=== PATIENT | female | born 1985 | race American Indian/Alaskan Native ===

== ENCOUNTER 2017-03-18 12:09 | Emergency (ER) | payer MEDICARE ==
[2017-03-18 13:42] LABS: Basophils % (Auto) 0.3 % (0.0-1.8); Eosinophils % (Auto) 0.8 % (0.0-4.3); Hematocrit 41.3 % (30.3-42.9); Hemoglobin 13.2 gm/dl (10.1-14.3); Mean Corpuscular HGB Conc 32 % (30-34); Mean Corpuscular Hemoglobin 27 pg (28-32); Mean Corpuscular Volume 85 fl (79-97); Platelet Count 350 K/mm3 (140-440); Red Blood Count 4.89 M/mm3 (3.65-5.03); Red Cell Distribution Width 14.2 % (13.2-15.2); White Blood Count 13.3 K/mm3 (4.5-11.0)
[2017-03-18 14:12] LABS: Alanine Aminotransferase 23 units/L (7-56); Albumin 4.1 g/dL (3.9-5); Albumin/Globulin Ratio 1.1 %; Alkaline Phosphatase 58 units/L (35-129); Anion Gap 20 mmol/L; Blood Urea Nitrogen 6 mg/dL (7-17); Calcium 9.5 mg/dL (8.4-10.2); Carbon Dioxide 25 mmol/L (22-30); Chloride 98.8 mmol/L (98-107); Glucose 122 mg/dL (65-100); Lipase 11 units/L (13-60); Potassium 4.1 mmol/L (3.6-5.0); Sodium 140 mmol/L (137-145)
[2017-03-18 14:40] LABS: Bacteria,Urine 1+ /HPF (Negative); Bilirubin,Urine NEG (Negative); Blood,Urine NEG (Negative); Ketones,Urine NEG (Negative); Leukocyte Esterase,Urine NEG (Negative); Mucus,Urine 2+ /HPF; Nitrite,Urine NEG (Negative)
[2017-03-18] MEDS ORDERED: MORPHINE IV ONE (17:19)
[2017-03-18] MEDS ORDERED: TYLENOL PO ONE (17:19)
--- NOTE | 2017-03-18 17:20 | Emergency Department Report ---
ED Abdominal Pain HPI - General Chief Complaint: Abdominal Pain Stated Complaint: LOWER ADB AND SIDE PAIN Time Seen by Provider: 03/18/17 17:06 Source: patient, RN notes reviewed, old records reviewed Mode of arrival: Ambulatory Limitations: No Limitations - History of Present Illness Initial Comments: This is a 31-year-old female. She is previously unknown to me. Past medical history includes nonischemic cardiomyopathy, diverticulitis. 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 The patient presents to the ER complaining of left-sided abdominal pain. The abdominal pain is sharp. It increases with palpation. It decreases with rest. No nausea or vomiting. No fevers or chills. No chest pain or shortness of breath. No irritative or obstructive urinary symptoms. No pelvic pain. No pelvic discharge. Thinks this is similar to prior episodes of diverticulitis, only more intense. No history of colonoscopy. MD Complaint: abdominal pain -: Gradual Location: LLQ Quality: aching Consistency: constant Improves With: rest Worsens With: movement Associated Symptoms: anorexia. denies: nausea, vomiting, diarrhea, fever, chills, constipation, dysuria, hematemesis, hematochezia, melena, hematuria, syncope Treatments Prior to Arrival: other (goody powder) - Related Data Previous Rx's Medication Instructions Recorded Last Taken Type Aspirin [Aspirin BABY CHEW TAB] 81 mg PO QDAY #30 tab.chew 03/27/16 Unknown Rx Carvedilol [Coreg] 12.5 mg PO BID #60 tablet 03/27/16 Unknown Rx Furosemide [Lasix TAB] 40 mg PO BID #60 tablet 03/27/16 Unknown Rx Lisinopril [Zestril TAB] 10 mg PO BID #60 tablet 03/27/16 Unknown Rx Potassium Chloride [K-Dur] 10 meq PO QDAY #30 tablet 03/27/16 Unknown Rx Spironolactone [Aldactone] 25 mg PO QDAY #30 tablet 03/27/16 Unknown Rx guaiFENesin/DEXTROMETHORPHAN 5 ml PO Q6HR PRN #120 syrup 03/27/16 Unknown Rx [Tussin Dm Cough Syrup] Acetaminophen [Tylenol Arthritis] 650 mg PO Q6HR PRN #30 tablet.er 03/18/17 Unknown Rx Ciprofloxacin HCl [Ciprofloxacin 500 mg PO Q12HR #14 tab 03/18/17 Unknown Rx TAB] Metoclopramide [Reglan] 10 mg PO QID PRN #30 tablet 03/18/17 Unknown Rx metroNIDAZOLE [Flagyl] 500 mg PO Q8HR #21 tablet 03/18/17 Unknown Rx oxyCODONE [Roxicodone] 5 mg PO Q6HR PRN #15 tablet 03/18/17 Unknown Rx Allergies Allergy/AdvReac Type Severity Reaction Status Date / Time pineapple Allergy Swelling Verified 07/15/15 12:13 SEAFOOD Allergy Swelling Uncoded 10/19/13 13:51 ED Review of Systems ROS: Stated complaint: LOWER ADB AND SIDE PAIN Other details as noted in HPI Constitutional: denies: fever, malaise Eyes: denies: vision change ENT: denies: epistaxis Respiratory: denies: cough Cardiovascular: denies: chest pain Gastrointestinal: abdominal pain Genitourinary: denies: urgency, dysuria Musculoskeletal: denies: back pain ED Past Medical Hx - Past Medical History Previous Medical History?: Yes Hx Hypertension: Yes Hx Heart Attack/AMI: Yes (09/2014) Hx Congestive Heart Failure: Yes Hx Diabetes: Yes Hx Kidney Stones: Yes Hx Asthma: Yes Hx COPD: No Additional medical history: Morbid obesity. Defibrillator - Surgical History Past Surgical History?: Yes Hx Internal Defibrillator: Yes - Social History Smoking Status: Never Smoker Substance Use Type: None - Medications Home Medications: Home Medications Medication Instructions Recorded Confirmed Last Taken Type Aspirin [Aspirin BABY CHEW TAB] 81 mg PO QDAY #30 tab.chew 03/27/16 Unknown Rx Carvedilol [Coreg] 12.5 mg PO BID #60 tablet 03/27/16 Unknown Rx Furosemide [Lasix TAB] 40 mg PO BID #60 tablet 03/27/16 Unknown Rx Lisinopril [Zestril TAB] 10 mg PO BID #60 tablet 03/27/16 Unknown Rx Potassium Chloride [K-Dur] 10 meq PO QDAY #30 tablet 03/27/16 Unknown Rx Spironolactone [Aldactone] 25 mg PO QDAY #30 tablet 03/27/16 Unknown Rx guaiFENesin/DEXTROMETHORPHAN 5 ml PO Q6HR PRN #120 syrup 03/27/16 Unknown Rx [Tussin Dm Cough Syrup] Acetaminophen [Tylenol Arthritis] 650 mg PO Q6HR PRN #30 tablet.er 03/18/17 Unknown Rx Ciprofloxacin HCl [Ciprofloxacin 500 mg PO Q12HR #14 tab 03/18/17 Unknown Rx TAB] Metoclopramide [Reglan] 10 mg PO QID PRN #30 tablet 03/18/17 Unknown Rx metroNIDAZOLE [Flagyl] 500 mg PO Q8HR #21 tablet 03/18/17 Unknown Rx oxyCODONE [Roxicodone] 5 mg PO Q6HR PRN #15 tablet 03/18/17 Unknown Rx ED Physical Exam - General Limitations: No Limitations General appearance: alert, in no apparent distress, obese - Head Head exam: Present: atraumatic, normocephalic - Eye Eye exam: Present: normal appearance - ENT ENT exam: Present: normal exam, normal orophraynx, mucous membranes moist, normal external ear exam - Neck Neck exam: Present: normal inspection, full ROM. Absent: tenderness, meningismus - Respiratory Respiratory exam: Present: normal lung sounds bilaterally. Absent: respiratory distress, wheezes, rales, rhonchi, stridor, chest wall tenderness, accessory muscle use, decreased breath sounds, prolonged expiratory - Cardiovascular Cardiovascular Exam: Present: normal rhythm, tachycardia, normal heart sounds. Absent: systolic murmur, diastolic murmur, rubs, gallop - GI/Abdominal GI/Abdominal exam: Present: soft, tenderness, normal bowel sounds. Absent: distended, guarding, rebound, rigid, pulsatile mass - External exam: Present: normal external exam Speculum exam: Present: normal speculum exam Bi-manual exam: Present: normal bi-manual exam, other (escorted by NEREIDA Chandra). Absent: cervical motion tendernes, adnexal tenderness, adnexal mass - Extremities Exam Extremities exam: Present: normal inspection, full ROM, normal capillary refill. Absent: tenderness, pedal edema, joint swelling, calf tenderness - Back Exam Back exam: Present: normal inspection, full ROM. Absent: tenderness, CVA tenderness (R), CVA tenderness (L), muscle spasm, paraspinal tenderness, vertebral tenderness - Neurological Exam Neurological exam: Present: alert, oriented X3, normal gait, other (Extraocular movements intact. Tongue midline. No facial droop. Facial sensation intact to light touch in the V1, V2, V3 distribution bilaterally. 5 and 5 strength in 4 extremities.. Sensation is intact to light touch in 4 extremities.). Absent : motor sensory deficit - Psychiatric Psychiatric exam: Present: normal affect, normal mood - Skin Skin exam: Present: warm, dry, intact, normal color. Absent: rash ED Course Vital Signs 03/18/17 03/18/17 03/18/17 13:03 17:40 18:00 Temperature 99 F Pulse Rate 110 H Respiratory 18 20 18 Rate Blood Pressure 155/92 Blood Pressure [Left] O2 Sat by Pulse 96 Oximetry 03/18/17 03/18/17 18:55 18:56 Temperature Pulse Rate 108 H Respiratory 18 20 Rate Blood Pressure Blood Pressure 122/80 [Left] O2 Sat by Pulse 95 Oximetry - Reevaluation(s) Reevaluation #1: 03/18/17 19:08 Differential diagnosis: Diverticulitis, pelvic inflammatory disease, urinary tract infection Assessment and plan: 31-year-old female with left lower quadrant pain and tenderness, a CT scan with IV contrast demonstrates uncomplicated diverticulitis , the distal descending colon. She is afebrile, tolerating liquid feeds, without abscess or phlegmon collection. The patient is stable from a cardiac perspective, minimal tachycardia secondary to pain. She is tolerating liquid feeds, tolerating oral antibiotics, she is suitable to be discharged with pain medication, nausea medication, instructions to follow up with outpatient gastroenterology. Return precautions were extensively reviewed. Given her CT scan findings, physical exam findings, benign gynecologic examination, I think pelvic inflammatory disease, urinary tract infection very unlikely. Reevaluation #2: 03/18/17 19:37 tachycardia resolved, tenderness improved, tolerating liquid feeds and ice chips. Tolerating antibiotics. Patient will be discharged. ED Medical Decision Making - Lab Data Result diagrams: 03/18/17 13:19 03/18/17 13:19 Vital Signs 03/18/17 03/18/17 03/18/17 13:03 17:40 18:00 Temperature 99 F Pulse Rate 110 H Respiratory 18 20 18 Rate Blood Pressure 155/92 Blood Pressure [Left] O2 Sat by Pulse 96 Oximetry 03/18/17 03/18/17 18:55 18:56 Temperature Pulse Rate 108 H Respiratory 18 20 Rate Blood Pressure Blood Pressure 122/80 [Left] O2 Sat by Pulse 95 Oximetry Lab Results 03/18/17 03/18/17 03/18/17 Range/Units 13:19 13:19 14:09 WBC 13.3 H (4.5-11.0) K/mm3 RBC 4.89 (3.65-5.03) M/mm3 Hgb 13.2 (10.1-14.3) gm/dl Hct 41.3 (30.3-42.9) % MCV 85 (79-97) fl MCH 27 L (28-32) pg MCHC 32 (30-34) % RDW 14.2 (13.2-15.2) % Plt Count 350 (140-440) K/mm3 Lymph % (Auto) 18.5 (13.4-35.0) % [place] % (Auto) 5.9 (0.0-7.3) % Eos % (Auto) 0.8 (0.0-4.3) % Baso % (Auto) 0.3 (0.0-1.8) % Lymph # 2.5 (1.2-5.4) K/mm3 [place] # 0.8 (0.0-0.8) K/mm3 Eos # 0.1 (0.0-0.4) K/mm3 Baso # 0.0 (0.0-0.1) K/mm3 Seg Neutrophils % 74.5 H (40.0-70.0) % Seg Neutrophils # 9.9 H (1.8-7.7) K/mm3 Sodium 140 (137-145) mmol/L Potassium 4.1 (3.6-5.0) mmol/L Chloride 98.8 (98-107) mmol/L Carbon Dioxide 25 (22-30) mmol/L Anion Gap 20 mmol/L BUN 6 L (7-17) mg/dL Creatinine 0.5 L (0.7-1.2) mg/dL Estimated GFR > 60 ml/min BUN/Creatinine Ratio 12.00 % Glucose 122 H (65-100) mg/dL Calcium 9.5 (8.4-10.2) mg/dL Total Bilirubin 0.90 (0.1-1.2) mg/dL AST 22 (5-40) units/L ALT 23 (7-56) units/L Alkaline Phosphatase 58 (35-129) units/L Total Protein 8.0 (6.3-8.2) g/dL Albumin 4.1 (3.9-5) g/dL Albumin/Globulin Ratio 1.1 % Lipase 11 L (13-60) units/L Urine Color Germaine (Yellow) Urine Turbidity Clear (Clear) Urine pH 5.0 (5.0-7.0) Ur Specific [place] 1.026 (1.003-1.030) Urine Protein 30 mg/dl (Negative) mg/dL Urine Glucose (UA) Neg (Negative) mg/dL Urine Ketones Neg (Negative) mg/dL Urine Blood Neg (Negative) Urine Nitrite Neg (Negative) Urine Bilirubin Neg (Negative) Urine Urobilinogen 2.0 (<2.0) mg/dL Ur Leukocyte Esterase Neg (Negative) Urine WBC (Auto) 2.0 (0.0-6.0) /HPF Urine RBC (Auto) 4.0 (0.0-6.0) /HPF U Epithel Cells (Auto) 12.0 (0-13.0) /HPF Urine Bacteria (Auto) 1+ (Negative) /HPF Urine Mucus 2+ /HPF Urine HCG, Qual (Negative) 03/18/17 Range/Units 14:09 WBC (4.5-11.0) K/mm3 RBC (3.65-5.03) M/mm3 Hgb (10.1-14.3) gm/dl Hct (30.3-42.9) % MCV (79-97) fl MCH (28-32) pg MCHC (30-34) % RDW (13.2-15.2) % Plt Count (140-440) K/mm3 Lymph % (Auto) (13.4-35.0) % [place] % (Auto) (0.0-7.3) % Eos % (Auto) (0.0-4.3) % Baso % (Auto) (0.0-1.8) % Lymph # (1.2-5.4) K/mm3 [place] # (0.0-0.8) K/mm3 Eos # (0.0-0.4) K/mm3 Baso # (0.0-0.1) K/mm3 Seg Neutrophils % (40.0-70.0) % Seg Neutrophils # (1.8-7.7) K/mm3 Sodium (137-145) mmol/L Potassium (3.6-5.0) mmol/L Chloride (98-107) mmol/L Carbon Dioxide (22-30) mmol/L Anion Gap mmol/L BUN (7-17) mg/dL Creatinine (0.7-1.2) mg/dL Estimated GFR ml/min BUN/Creatinine Ratio % Glucose (65-100) mg/dL Calcium (8.4-10.2) mg/dL Total Bilirubin (0.1-1.2) mg/dL AST (5-40) units/L ALT (7-56) units/L Alkaline Phosphatase (35-129) units/L Total Protein (6.3-8.2) g/dL Albumin (3.9-5) g/dL Albumin/Globulin Ratio % Lipase (13-60) units/L Urine Color (Yellow) Urine Turbidity (Clear) Urine pH (5.0-7.0) Ur Specific [place] (1.003-1.030) Urine Protein (Negative) mg/dL Urine Glucose (UA) (Negative) mg/dL Urine Ketones (Negative) mg/dL Urine Blood (Negative) Urine Nitrite (Negative) Urine Bilirubin (Negative) Urine Urobilinogen (<2.0) mg/dL Ur Leukocyte Esterase (Negative) Urine WBC (Auto) (0.0-6.0) /HPF Urine RBC (Auto) (0.0-6.0) /HPF U Epithel Cells (Auto) (0-13.0) /HPF Urine Bacteria (Auto) (Negative) /HPF Urine Mucus /HPF Urine HCG, Qual Negative (Negative) - Radiology Data Radiology results: report reviewed, image reviewed CT scan of the abdomen and pelvis with IV contrast demonstrates acute diverticulitis with the distal descending colon. There is no abscess or microperforation. Critical care attestation.: If time is entered above; I have spent that time in minutes in the direct care of this critically ill patient, excluding procedure time. ED Disposition Clinical Impression: Abdominal pain Disposition: DISCHARGED TO HOME OR SELFCARE Is pt being admited?: No Does the pt Need Aspirin: No Condition: Stable Instructions: Diverticulitis (ED), Diverticulitis Diet (ED), Abdominal Pain (ED ) Additional Instructions: Take pain medication, nausea medication, antibiotic therapy as directed. Do not consume alcohol, and if taking the oxycodone, do not drive, or make important decisions. Follow up with any petroleum engineer within the next 7- 10 days for repeat evaluation. [place] [facility] as patient service hotline: [email or web address] ([phone]) Contact him to arrange close outpatient follow-up. Cultures were sent today, results of the available next 3-5 days. Have a primary care doctor or petroleum engineer contacted the medical records department to obtain culture results. Return to the ER run away with new pain, worsening pain, migration of pain, fevers or chills, intractable nausea or vomiting, change in mental status , confusion, inability to tolerate liquid feeds. It is very important to follow up with outpatient gastroenterology for evaluation for possible colonoscopy. Not not following up in a recommended timeframe may result in an undiagnosed tumor/cancer/malignancy. Prescriptions: Acetaminophen [Tylenol Arthritis] 650 mg PO Q6HR PRN #30 tablet.er PRN Reason: Pain Ciprofloxacin HCl [Ciprofloxacin TAB] 500 mg PO Q12HR #14 tab Metoclopramide [Reglan] 10 mg PO QID PRN #30 tablet PRN Reason: Nausea metroNIDAZOLE [Flagyl] 500 mg PO Q8HR #21 tablet oxyCODONE [Roxicodone] 5 mg PO Q6HR PRN #15 tablet PRN Reason: Pain Referrals: PRIMARY CARE, [Primary Care Provider] - 3-5 Days CECI CHAVES MD [Staff Physician] - 3-5 Days
[2017-03-18] MEDS ORDERED: NACL ONE ×2 (17:36→18:01)
[2017-03-18] MEDS ORDERED: DILAUDID IV ONE (18:53)
--- NOTE | 2017-03-18 18:57 | Cat Scan Report ---
FINAL REPORT EXAM: CT ABDOMEN PELVIS W CON HISTORY: llq pain TECHNIQUE: CT abdomen and pelvis with intravenous contrast PRIORS: None. FINDINGS: No acute abnormality identified in the lung bases. No focal abnormality identified within the liver parenchyma. The spleen demonstrates normal size and attenuation. No pancreatic abnormalities seen. The kidneys demonstrate symmetric contrast enhancement. No evidence of hydronephrosis. The adrenal glands are unremarkable Abdominal aorta is normal in caliber. No pathologically enlarged lymph nodes are identified. No signs of free fluid or free air No evidence of small bowel dilatation. Multiple diverticula are present distal descending and sigmoid colon. At the junction of the distal descending and sigmoid colon there is hazy adjacent inflammatory change consistent with acute diverticulitis. No free air identified. No abscess collection identified.. Urinary bladder is unremarkable. IMPRESSION: Findings consistent with acute diverticulitis distal descending colon
[2017-03-18] MEDS ORDERED: FLAGYL PO ONE (19:10)
[2017-03-18] MEDS ORDERED: NACL 0.9% 250ML 250 ML IV ONE (19:10)
[2017-03-18] MEDS ORDERED: LEVAQUIN PO ONE (19:10)
[2017-03-18] MEDS ORDERED: NACL 0.9% 1000 ML 1,000 ML ONE (19:28)
[2017-03-18 20:19] VITALS: BP 135/92
== END 2017-03-18 19:45 | disposition home or self-care (01) ==
LOC: ED 12:09
DX: R10.9 Unspecified abdominal pain (principal); I10 Essential (primary) hypertension; I25.2 Old myocardial infarction; I50.9 Heart failure, unspecified; E11.9 Type 2 diabetes mellitus without complications; J45.909 Unspecified asthma, uncomplicated; E66.01 Morbid (severe) obesity due to excess calories
CPT/HCPCS: 36415; 74177; 80053; 81001; 81025; 83690; 85025; 87210; 87591; 96374; 96375; 99284; J1170; J2270; J7030; Q9967

== ENCOUNTER 2017-11-12 11:48 | Emergency (ER) | payer MEDICARE ==
[2017-11-12 18:20] VITALS: BP 144/96
[2017-11-12] MEDS ORDERED: MOTRIN PO ONE ×2 (18:40→19:40)
[2017-11-12] MEDS ORDERED: HYDROGEN PEROXIDE TP ONE (18:55)
--- NOTE | 2017-11-12 19:01 | Emergency Department Report ---
ED ENT HPI - General Chief complaint: Earache Stated complaint: LEFT EAR PAIN Time Seen by Provider: 11/12/17 17:02 Source: patient Mode of arrival: Ambulatory Limitations: No Limitations - History of Present Illness Initial comments: This is a 31-year-old female nontoxic, well nourished in appearance, no acute signs of distress presents to the ED with c/o of left earache x3 days. Patient stated has had frequent ear infections with last one being last year. Patient denies any hearing changes or hearing loss. Patient denies mastoid tenderness. Denies any fever, chills, headache, nausea, vomiting, numbness, tingling, chest pain, shortness of breathe, stiff neck. Patient states has tragus pain. Denies any ear discharge. Patient denies any drug allergies. PMH includes asthma, congestive heart failure, diabetes, NV, hypertension and kidney stones. MD complaint: ear pain -: days(s) (3) Location: L ear Severity: mild Severity scale (0 -10): 8 Quality: aching Consistency: constant Improves with: none Worsens with: none Associated Symptoms: denies: fever, cough, gum swelling, toothache, pain with swallowing, sore throat, tinnitus, hearing loss, discharge from ear, rhinorrhea - Related Data Previous Rx's Medication Instructions Recorded Last Taken Type Aspirin [Aspirin BABY CHEW TAB] 81 mg PO QDAY #30 tab.chew 03/27/16 Unknown Rx Carvedilol [Coreg] 12.5 mg PO BID #60 tablet 03/27/16 Unknown Rx Furosemide [Lasix TAB] 40 mg PO BID #60 tablet 03/27/16 Unknown Rx Lisinopril [Zestril TAB] 10 mg PO BID #60 tablet 03/27/16 Unknown Rx Potassium Chloride [K-Dur] 10 meq PO QDAY #30 tablet 03/27/16 Unknown Rx Spironolactone [Aldactone] 25 mg PO QDAY #30 tablet 03/27/16 Unknown Rx guaiFENesin/DEXTROMETHORPHAN 5 ml PO Q6HR PRN #120 syrup 03/27/16 Unknown Rx [Tussin Dm Cough Syrup] Acetaminophen [Tylenol Arthritis] 650 mg PO Q6HR PRN #30 tablet.er 03/18/17 Unknown Rx Ciprofloxacin HCl [Ciprofloxacin 500 mg PO Q12HR #14 tab 03/18/17 Unknown Rx TAB] Metoclopramide [Reglan] 10 mg PO QID PRN #30 tablet 03/18/17 Unknown Rx metroNIDAZOLE [Flagyl] 500 mg PO Q8HR #21 tablet 03/18/17 Unknown Rx oxyCODONE [Roxicodone] 5 mg PO Q6HR PRN #15 tablet 03/18/17 Unknown Rx Amoxicillin/K Clav Tab [Augmentin 1 tab PO Q12HR #20 tab 11/12/17 Unknown Rx 875 mg] Ciprofloxacin/Hydrocortisone 3 drop OT BID 7 Days bottle 11/12/17 Unknown Rx [Ciprofloxacin HC OTIC] traMADol [Ultram] 50 mg PO Q6HR PRN #12 tablet 11/12/17 Unknown Rx Allergies Allergy/AdvReac Type Severity Reaction Status Date / Time pineapple Allergy Swelling Verified 07/15/15 12:13 SEAFOOD Allergy Swelling Uncoded 10/19/13 13:51 ED Dental HPI - General Chief complaint: Earache Stated complaint: LEFT EAR PAIN Time Seen by Provider: 11/12/17 17:02 Source: patient Mode of arrival: Ambulatory Limitations: No Limitations - Related Data Previous Rx's Medication Instructions Recorded Last Taken Type Aspirin [Aspirin BABY CHEW TAB] 81 mg PO QDAY #30 tab.chew 03/27/16 Unknown Rx Carvedilol [Coreg] 12.5 mg PO BID #60 tablet 03/27/16 Unknown Rx Furosemide [Lasix TAB] 40 mg PO BID #60 tablet 03/27/16 Unknown Rx Lisinopril [Zestril TAB] 10 mg PO BID #60 tablet 03/27/16 Unknown Rx Potassium Chloride [K-Dur] 10 meq PO QDAY #30 tablet 03/27/16 Unknown Rx Spironolactone [Aldactone] 25 mg PO QDAY #30 tablet 03/27/16 Unknown Rx guaiFENesin/DEXTROMETHORPHAN 5 ml PO Q6HR PRN #120 syrup 03/27/16 Unknown Rx [Tussin Dm Cough Syrup] Acetaminophen [Tylenol Arthritis] 650 mg PO Q6HR PRN #30 tablet.er 03/18/17 Unknown Rx Ciprofloxacin HCl [Ciprofloxacin 500 mg PO Q12HR #14 tab 03/18/17 Unknown Rx TAB] Metoclopramide [Reglan] 10 mg PO QID PRN #30 tablet 03/18/17 Unknown Rx metroNIDAZOLE [Flagyl] 500 mg PO Q8HR #21 tablet 03/18/17 Unknown Rx oxyCODONE [Roxicodone] 5 mg PO Q6HR PRN #15 tablet 03/18/17 Unknown Rx Amoxicillin/K Clav Tab [Augmentin 1 tab PO Q12HR #20 tab 11/12/17 Unknown Rx 875 mg] Ciprofloxacin/Hydrocortisone 3 drop OT BID 7 Days bottle 11/12/17 Unknown Rx [Ciprofloxacin HC OTIC] traMADol [Ultram] 50 mg PO Q6HR PRN #12 tablet 11/12/17 Unknown Rx Allergies Allergy/AdvReac Type Severity Reaction Status Date / Time pineapple Allergy Swelling Verified 07/15/15 12:13 SEAFOOD Allergy Swelling Uncoded 10/19/13 13:51 ED Review of Systems ROS: Stated complaint: LEFT EAR PAIN Other details as noted in HPI Constitutional: denies: chills, fever Eyes: denies: eye pain, eye discharge, vision change ENT: ear pain. denies: throat pain Respiratory: denies: cough, shortness of breath, wheezing Cardiovascular: denies: chest pain, palpitations Endocrine: no symptoms reported Gastrointestinal: denies: abdominal pain, nausea, diarrhea Genitourinary: denies: urgency, dysuria, discharge Musculoskeletal: denies: back pain, joint swelling, arthralgia Skin: denies: rash, lesions Neurological: denies: headache, weakness, paresthesias Psychiatric: denies: anxiety, depression Hematological/Lymphatic: denies: easy bleeding, easy bruising ED Past Medical Hx - Past Medical History Hx Hypertension: Yes Hx Heart Attack/AMI: Yes (09/2014) Hx Congestive Heart Failure: Yes Hx Diabetes: Yes Hx Kidney Stones: Yes Hx Asthma: Yes Hx COPD: No Additional medical history: Morbid obesity. Defibrillator - Surgical History Hx Internal Defibrillator: Yes - Social History Smoking Status: Never Smoker Substance Use Type: None - Medications Home Medications: Home Medications Medication Instructions Recorded Confirmed Last Taken Type Aspirin [Aspirin BABY CHEW TAB] 81 mg PO QDAY #30 tab.chew 03/27/16 Unknown Rx Carvedilol [Coreg] 12.5 mg PO BID #60 tablet 03/27/16 Unknown Rx Furosemide [Lasix TAB] 40 mg PO BID #60 tablet 03/27/16 Unknown Rx Lisinopril [Zestril TAB] 10 mg PO BID #60 tablet 03/27/16 Unknown Rx Potassium Chloride [K-Dur] 10 meq PO QDAY #30 tablet 03/27/16 Unknown Rx Spironolactone [Aldactone] 25 mg PO QDAY #30 tablet 03/27/16 Unknown Rx guaiFENesin/DEXTROMETHORPHAN 5 ml PO Q6HR PRN #120 syrup 03/27/16 Unknown Rx [Tussin Dm Cough Syrup] Acetaminophen [Tylenol Arthritis] 650 mg PO Q6HR PRN #30 tablet.er 03/18/17 Unknown Rx Ciprofloxacin HCl [Ciprofloxacin 500 mg PO Q12HR #14 tab 03/18/17 Unknown Rx TAB] Metoclopramide [Reglan] 10 mg PO QID PRN #30 tablet 03/18/17 Unknown Rx metroNIDAZOLE [Flagyl] 500 mg PO Q8HR #21 tablet 03/18/17 Unknown Rx oxyCODONE [Roxicodone] 5 mg PO Q6HR PRN #15 tablet 03/18/17 Unknown Rx Amoxicillin/K Clav Tab [Augmentin 1 tab PO Q12HR #20 tab 11/12/17 Unknown Rx 875 mg] Ciprofloxacin/Hydrocortisone 3 drop OT BID 7 Days bottle 11/12/17 Unknown Rx [Ciprofloxacin HC OTIC] traMADol [Ultram] 50 mg PO Q6HR PRN #12 tablet 11/12/17 Unknown Rx ED Physical Exam - General Limitations: No Limitations General appearance: alert, in no apparent distress - Head Head exam: Present: atraumatic, normocephalic - Eye Eye exam: Present: normal appearance, PERRL, EOMI. Absent: scleral icterus, conjunctival injection, nystagmus, periorbital swelling, periorbital tenderness Pupils: Present: normal accommodation - ENT ENT exam: Present: normal orophraynx, mucous membranes moist - Expanded ENT Exam Expanded Ear exam: Present: normal external inspection TM/Canal exam: Erythema: Left TM, Bulging: Left TM Mouth exam: Present: normal external inspection, tongue normal. Absent: drooling, trismus, muffled voice, tongue elevation, laceration Teeth exam: Present: normal inspection Throat exam: Positive: normal inspection. Negative: tonsillar erythema, tonsillomegaly, tonsillar exudate, R peritonsillar mass, L peritonsillar mass - Neck Neck exam: Present: normal inspection, full ROM. Absent: tenderness, meningismus, lymphadenopathy, thyromegaly - Respiratory Respiratory exam: Present: normal lung sounds bilaterally. Absent: respiratory distress, wheezes, rales, rhonchi, stridor, chest wall tenderness, accessory muscle use, decreased breath sounds, prolonged expiratory - Cardiovascular Cardiovascular Exam: Present: regular rate, normal rhythm, normal heart sounds. Absent: irregular rhythm, systolic murmur, diastolic murmur, rubs, gallop - GI/Abdominal GI/Abdominal exam: Present: soft, normal bowel sounds. Absent: distended, tenderness, guarding, rebound, rigid, diminished bowel sounds - Rectal Rectal exam: Present: deferred - Extremities Exam Extremities exam: Present: normal inspection, full ROM, normal capillary refill. Absent: tenderness, pedal edema, joint swelling, calf tenderness - Back Exam Back exam: Present: normal inspection, full ROM. Absent: tenderness, CVA tenderness (R), CVA tenderness (L), muscle spasm, paraspinal tenderness, vertebral tenderness, rash noted - Neurological Exam Neurological exam: Present: alert, oriented X3, CN II-XII intact, normal gait, reflexes normal - Psychiatric Psychiatric exam: Present: normal affect, normal mood - Skin Skin exam: Present: warm, dry, intact, normal color. Absent: rash - Other Other exam information: Negative mastoid tenderness. Tenderness in the tragus region. No facial swelling. ED Course Vital Signs 11/12/17 11/12/17 12:33 16:58 Temperature 98.3 F 98.6 F Pulse Rate 102 H 91 H Respiratory 18 20 Rate Blood Pressure 137/94 144/96 O2 Sat by Pulse 95 93 Oximetry - Reevaluation(s) Reevaluation #1: 11/12/17 19:01 Patient is speaking in full sentences with no signs of distress noted. ED Medical Decision Making - Medical Decision Making This is a 31-year-old female that presents with chronic intermittent otitis media and otitis extrna. Patient is stable and was examined by me. There is no mastoid tenderness or erythema. PAtient stated last episode was last year and received PO anibiotics and ear drops. PAtient is discharge with agumentin and cipro due to recurrent ear infections. Patient was instructed Follow-up with a ENT doctor in 3-5 days or if symptoms worsen and continue return to emergency room as soon as possible. At time time of discharge, the patient does not seem toxic or ill in appearance. No acute signs of distress noted. Patient agrees to discharge treatment plan of care. No further questions noted by the patient. Critical care attestation.: If time is entered above; I have spent that time in minutes in the direct care of this critically ill patient, excluding procedure time. ED Disposition Clinical Impression: Otitis media Qualifiers: Otitis media type: unspecified Laterality: left Qualified Code(s): H66.92 - Otitis media, unspecified, left ear Otitis externa Qualifiers: Otitis externa type: unspecified type Chronicity: acute Laterality: left Qualified Code(s): H60.502 - Unspecified acute noninfective otitis externa, left ear Disposition: TO HOME OR SELFCARE Is pt being admited?: No Does the pt Need Aspirin: No Condition: Stable Instructions: Amoxicillin/Clavulanate Potassium (By mouth), Ciprofloxacin ( Into the ear), Otitis Externa (ED), Otitis Media (ED) Additional Instructions: Follow-up with a primary care doctor/ENT doctor in 3-5 days or if symptoms worsen and continue return to emergency room as soon as possible. Do not operate any machinery while taking Ultram due to drowsiness Prescriptions: Amoxicillin/K Clav Tab [Augmentin 875 mg] 1 tab PO Q12HR #20 tab Ciprofloxacin/Hydrocortisone [Ciprofloxacin HC OTIC] 3 drop OT BID 7 Days bottle traMADol [Ultram] 50 mg PO Q6HR PRN #12 tablet PRN Reason: Pain Referrals: [facility] [Outside] - 3-5 Days [facility] [Outside] - 3-5 Days CATRACHO MERCEDES PA [Primary Care Provider] - 3-5 Days MATTHIAS NUNES MD [Staff Physician] - 3-5 Days PRIMARY CAREMD [Referring] - 3-5 Days Forms: Work/School Release Form(ED)
== END 2017-11-12 20:12 | disposition home or self-care (01) ==
LOC: ED 11:48
DX: H60.502 Unspecified acute noninfective otitis externa, left ear (principal); H66.92 Otitis media, unspecified, left ear; I10 Essential (primary) hypertension; I25.2 Old myocardial infarction; I50.9 Heart failure, unspecified; J45.909 Unspecified asthma, uncomplicated; Z79.82 Long term (current) use of aspirin; E11.9 Type 2 diabetes mellitus without complications; Z91.013 Allergy to seafood; Z91.018 Allergy to other foods
CPT/HCPCS: 99282

== ENCOUNTER 2017-12-26 16:01 | Emergency (ER) | payer MEDICARE ==
[2017-12-26] MEDS ORDERED: MOTRIN PO ONE (17:45)
[2017-12-26] MEDS ORDERED: ULTRAM PO ONE (17:45)
--- NOTE | 2017-12-26 17:45 | Emergency Department Report ---
Blank Doc - Documentation Documentation: Patient is a 32-year-old [place] female whose has pain in the left foot. Patient states she was walking and pain started abruptly. The patient is not noted any trauma didn't feel as though she stepped on anything. Patient states that pain mostly on the lateral left foot. X-ray will be taken to rule out stress fracture
--- NOTE | 2017-12-26 18:51 | XRay Report ---
FINAL REPORT PROCEDURE: XR FOOT 3+V LT TECHNIQUE: Left foot, three views HISTORY: pain and swelling r/o stress fracture COMPARISON: No prior studies are available for comparison. FINDINGS: No fracture or joint dislocation is seen. No focal osseous lesion. The ankle mortise and talar dome are intact. IMPRESSION: No fracture is visible. If there are persistent symptoms and concern for occult fracture, follow-up radiograph or MRI could be obtained
--- NOTE | 2017-12-26 19:15 | Emergency Department Report ---
ED Lower Extremity HPI - General Chief Complaint: Extremity Injury, Lower Stated Complaint: "BROKEN FOOT" Time Seen by Provider: 12/26/17 17:28 Source: patient Mode of arrival: Wheelchair Limitations: No Limitations - History of Present Illness Initial Comments: This is a 32-year-old female nontoxic, well nourished in appearance, no acute signs of distress presents to the ED with c/o of left foot pain. Patient stated she was walking up the stairs yesterday and then abruptly started to have pain. Patient denies any trauma. Denies any numbness, tingling, fever, chills, nausea, vomiting, headache or stiff neck. Patient denies any chest pain or shortness of breath. Patient states allergies to seafood and pineapple. Past medical history includes asthma, CHF, diabetes, DC and hypertension. MD Complaint: foot injury -: Last night Injury: Foot: Left Place: home Severity: mild Severity scale (0 -10): 8 Improves With: immobilization Worsens With: weight bearing, movement Context: running Associated Symptoms: swelling, able to partially bear weight. denies: snap/pop sensation, numbness, tingling, unable to bear weight, ambulatory - Related Data Previous Rx's Medication Instructions Recorded Last Taken Type Aspirin [Aspirin BABY CHEW TAB] 81 mg PO QDAY #30 tab.chew 03/27/16 Unknown Rx Carvedilol [Coreg] 12.5 mg PO BID #60 tablet 03/27/16 Unknown Rx Furosemide [Lasix TAB] 40 mg PO BID #60 tablet 03/27/16 Unknown Rx Lisinopril [Zestril TAB] 10 mg PO BID #60 tablet 03/27/16 Unknown Rx Potassium Chloride [K-Dur] 10 meq PO QDAY #30 tablet 03/27/16 Unknown Rx Spironolactone [Aldactone] 25 mg PO QDAY #30 tablet 03/27/16 Unknown Rx guaiFENesin/DEXTROMETHORPHAN 5 ml PO Q6HR PRN #120 syrup 03/27/16 Unknown Rx [Tussin Dm Cough Syrup] Acetaminophen [Tylenol Arthritis] 650 mg PO Q6HR PRN #30 tablet.er 03/18/17 Unknown Rx Ciprofloxacin HCl [Ciprofloxacin 500 mg PO Q12HR #14 tab 03/18/17 Unknown Rx TAB] Metoclopramide [Reglan] 10 mg PO QID PRN #30 tablet 03/18/17 Unknown Rx metroNIDAZOLE [Flagyl] 500 mg PO Q8HR #21 tablet 03/18/17 Unknown Rx oxyCODONE [Roxicodone] 5 mg PO Q6HR PRN #15 tablet 03/18/17 Unknown Rx Amoxicillin/K Clav Tab [Augmentin 1 tab PO Q12HR #20 tab 11/12/17 Unknown Rx 875 mg] Ciprofloxacin/Hydrocortisone 3 drop OT BID 7 Days bottle 11/12/17 Unknown Rx [Ciprofloxacin HC OTIC] traMADol [Ultram] 50 mg PO Q6HR PRN #12 tablet 11/12/17 Unknown Rx Ibuprofen [Motrin] 600 mg PO Q8H PRN #30 tablet 12/26/17 Unknown Rx Allergies Allergy/AdvReac Type Severity Reaction Status Date / Time pineapple Allergy Swelling Verified 12/26/17 16:09 SEAFOOD Allergy Swelling Uncoded 10/19/13 13:51 ED Review of Systems ROS: Stated complaint: "BROKEN FOOT" Other details as noted in HPI Constitutional: denies: chills, fever Eyes: denies: eye pain, eye discharge, vision change ENT: denies: ear pain, throat pain Respiratory: denies: cough, shortness of breath, wheezing Cardiovascular: denies: chest pain, palpitations Endocrine: no symptoms reported Gastrointestinal: denies: abdominal pain, nausea, diarrhea Genitourinary: denies: urgency, dysuria, discharge Musculoskeletal: arthralgia. denies: back pain, joint swelling Skin: denies: rash, lesions Neurological: denies: headache, weakness, paresthesias Psychiatric: denies: anxiety, depression Hematological/Lymphatic: denies: easy bleeding, easy bruising ED Past Medical Hx - Past Medical History Hx Hypertension: Yes Hx Heart Attack/AMI: Yes (09/2014) Hx Congestive Heart Failure: Yes Hx Diabetes: Yes Hx Kidney Stones: Yes Hx Asthma: Yes Hx COPD: No Additional medical history: Morbid obesity. Defibrillator - Surgical History Hx Internal Defibrillator: Yes - Social History Smoking Status: Never Smoker Substance Use Type: None - Medications Home Medications: Home Medications Medication Instructions Recorded Confirmed Last Taken Type Aspirin [Aspirin BABY CHEW TAB] 81 mg PO QDAY #30 tab.chew 03/27/16 Unknown Rx Carvedilol [Coreg] 12.5 mg PO BID #60 tablet 03/27/16 Unknown Rx Furosemide [Lasix TAB] 40 mg PO BID #60 tablet 03/27/16 Unknown Rx Lisinopril [Zestril TAB] 10 mg PO BID #60 tablet 03/27/16 Unknown Rx Potassium Chloride [K-Dur] 10 meq PO QDAY #30 tablet 03/27/16 Unknown Rx Spironolactone [Aldactone] 25 mg PO QDAY #30 tablet 03/27/16 Unknown Rx guaiFENesin/DEXTROMETHORPHAN 5 ml PO Q6HR PRN #120 syrup 03/27/16 Unknown Rx [Tussin Dm Cough Syrup] Acetaminophen [Tylenol Arthritis] 650 mg PO Q6HR PRN #30 tablet.er 03/18/17 Unknown Rx Ciprofloxacin HCl [Ciprofloxacin 500 mg PO Q12HR #14 tab 03/18/17 Unknown Rx TAB] Metoclopramide [Reglan] 10 mg PO QID PRN #30 tablet 03/18/17 Unknown Rx metroNIDAZOLE [Flagyl] 500 mg PO Q8HR #21 tablet 03/18/17 Unknown Rx oxyCODONE [Roxicodone] 5 mg PO Q6HR PRN #15 tablet 03/18/17 Unknown Rx Amoxicillin/K Clav Tab [Augmentin 1 tab PO Q12HR #20 tab 11/12/17 Unknown Rx 875 mg] Ciprofloxacin/Hydrocortisone 3 drop OT BID 7 Days bottle 11/12/17 Unknown Rx [Ciprofloxacin HC OTIC] traMADol [Ultram] 50 mg PO Q6HR PRN #12 tablet 11/12/17 Unknown Rx Ibuprofen [Motrin] 600 mg PO Q8H PRN #30 tablet 12/26/17 Unknown Rx ED Physical Exam - General Limitations: No Limitations General appearance: alert, in no apparent distress - Head Head exam: Present: atraumatic, normocephalic - Eye Eye exam: Present: normal appearance Pupils: Present: normal accommodation - ENT ENT exam: Present: normal exam, normal orophraynx, mucous membranes moist, TM's normal bilaterally, normal external ear exam - Neck Neck exam: Present: normal inspection, full ROM. Absent: tenderness, meningismus, lymphadenopathy, thyromegaly - Respiratory Respiratory exam: Present: normal lung sounds bilaterally. Absent: respiratory distress, wheezes, rales, rhonchi, stridor, chest wall tenderness, accessory muscle use, decreased breath sounds, prolonged expiratory - Cardiovascular Cardiovascular Exam: Present: regular rate, normal rhythm, normal heart sounds. Absent: irregular rhythm, systolic murmur, diastolic murmur, rubs, gallop - GI/Abdominal GI/Abdominal exam: Present: soft, normal bowel sounds. Absent: distended, tenderness, guarding, rebound, rigid, diminished bowel sounds - Rectal Rectal exam: Present: deferred - Extremities Exam Extremities exam: Present: normal inspection, full ROM, tenderness, normal capillary refill. Absent: pedal edema, joint swelling, calf tenderness - Expanded Lower Extremity Exam Left Hip exam: Present: normal inspection, full ROM Upper Leg exam: Present: normal inspection, full ROM Knee exam: Present: normal inspection, full ROM Lower Leg exam: Present: normal inspection, full ROM Ankle exam: Present: normal inspection, full ROM. Absent: tenderness, abrasion , laceration, ecchymosis, deformity, crepidus, dislocation, erythema, anterior draw sign Foot/Toe exam: Present: normal inspection, full ROM, tenderness. Absent: swelling, abrasion, laceration, ecchymosis, deformity, crepidus, dislocation, erythema, amputation, puncture wound, foreign body, calcaneal tenderness, tenderness at base of 5th metatarsal, nail avulsion, subungual hematoma Neuro vascular tendon exam: Present: no vascular compromise. Absent: pulse deficit, abnormal cap refill, motor deficit, sensory deficit, tendon deficit, extremity cold to touch, pallor, abnormal 2-point discrimination, decreased fine /light touch, foot drop, peroneal nerve deficit, significant pain with passive ROM of distal joint Gait: Positive: observed and limited by pain 1 - foot pain - Back Exam Back exam: Present: normal inspection, full ROM - Neurological Exam Neurological exam: Present: alert, oriented X3, CN II-XII intact, normal gait, reflexes normal - Psychiatric Psychiatric exam: Present: normal affect, normal mood - Skin Skin exam: Present: warm, dry, intact, normal color. Absent: rash ED Course Vital Signs 12/26/17 12/26/17 12/26/17 16:09 17:54 17:55 Temperature 97.8 F Pulse Rate 103 H Respiratory 18 18 18 Rate Blood Pressure 130/84 O2 Sat by Pulse 96 Oximetry - Reevaluation(s) Reevaluation #1: 12/26/17 19:15 Patient is speaking in full sentences with no signs of distress noted. - Consultations Consultation #1: 12/26/17 19:15 Patient has been consulted with Dr. Peralta about patient history, physical exam , and labs and examined and screened patient and agrees to ED plan of care and discharge plan of care. ED Lower Extremity MDM - Medical Decision Making This is a 32-year-old female that presents with left foot sprain. Patient is stable and was examined me. X-ray has been obtained and the radiologist with no fracture dislocation. Patient is notified of x-ray results with normal questions noted by the patient. Patient received rice and Motrin in the ED. Patient also received ortho shoe and crutches and was educated by RN how to use crutches. Patient was instructed and referred to Follow-up with a orthopedic doctor in 3-5 days or if symptoms worsen and continue return to emergency room as soon as possible. At time of discharge, the patient does not seem toxic or ill in appearance. No acute signs of distress noted. Patient agrees to discharge treatment plan of care. No further questions noted by the patient. Critical care attestation.: If time is entered above; I have spent that time in minutes in the direct care of this critically ill patient, excluding procedure time. ED Disposition Clinical Impression: Strain of left foot Qualifiers: Encounter type: initial encounter Qualified Code(s): S96.912A - Strain of unspecified muscle and tendon at ankle and foot level, left foot, initial encounter Disposition: DC- TO HOME OR SELFCARE Is pt being admited?: No Does the pt Need Aspirin: No Condition: Stable Instructions: RICE Therapy (ED), Ibuprofen (By mouth), Crutch Instructions (ED) Additional Instructions: Follow-up with a orthopedic doctor in 3-5 days or if symptoms worsen and continue return to emergency room as soon as possible. Prescriptions: Ibuprofen [Motrin] 600 mg PO Q8H PRN #30 tablet PRN Reason: Pain Referrals: PRIMARY CAREMD [Primary Care Provider] - 3-5 Days TAE OTT MD [Staff Physician] - 3-[address] [facility] [Outside] - 3-5 Days [facility] [Outside] - 3-5 Days Forms: Work/School Release Form(ED)
[2017-12-26 19:47] VITALS: BP 130/96
== END 2017-12-26 19:47 | disposition home or self-care (01) ==
LOC: ED 16:01
DX: S96.912A Strain of unspecified muscle and tendon at ankle and foot level, left foot, initial encounter (principal); I11.0 Hypertensive heart disease with heart failure; I50.9 Heart failure, unspecified; E11.9 Type 2 diabetes mellitus without complications; I25.2 Old myocardial infarction; J45.909 Unspecified asthma, uncomplicated; E66.01 Morbid (severe) obesity due to excess calories; Z68.43 Body mass index [BMI] 50.0-59.9, adult; Z95.810 Presence of automatic (implantable) cardiac defibrillator; Z87.442 Personal history of urinary calculi; Z91.018 Allergy to other foods; Z91.013 Allergy to seafood; X58.XXXA Exposure to other specified factors, initial encounter; Y93.02 Activity, running; Y99.8 Other external cause status; Y92.009 Unspecified place in unspecified non-institutional (private) residence as the place of occurrence of the external cause
CPT/HCPCS: 99284

== ENCOUNTER 2018-04-24 19:14 | Inpatient (IN) | payer MEDICARE ==
[2018-04-24] MEDS ORDERED: NACL 0.9% 1000 ML 1,000 ML IV ONE (20:05)
[2018-04-24 20:54] LABS: Basophils # (Auto) 0.1 K/mm3 (0.0-0.1); Basophils % (Auto) 0.5 % (0.0-1.8); Eosinophils # (Auto) 0.1 K/mm3 (0.0-0.4); Eosinophils % (Auto) 1.3 % (0.0-4.3); Hematocrit 39.5 % (30.3-42.9); Hemoglobin 12.6 gm/dl (10.1-14.3); Lymphocytes % (Auto) 19.2 % (13.4-35.0); Mean Corpuscular HGB Conc 32 % (30-34); Mean Corpuscular Hemoglobin 27 pg (28-32); Mean Corpuscular Volume 85 fl (79-97); Monocytes # (Auto) 0.9 K/mm3 (0.0-0.8); Monocytes % (Auto) 8.2 % (0.0-7.3); Platelet Count 302 K/mm3 (140-440); Red Blood Count 4.65 M/mm3 (3.65-5.03); Red Cell Distribution Width 16.1 % (13.2-15.2)
[2018-04-24 21:09] LABS: Alanine Aminotransferase 9 units/L (7-56); Albumin 3.9 g/dL (3.9-5); BUN/Creatinine Ratio 12; Blood Urea Nitrogen 7 mg/dL (7-17); Calcium 9.4 mg/dL (8.4-10.2); Hemolysis Index 0
[2018-04-24 21:52] LABS: Bilirubin,Urine NEG (Negative); Blood,Urine NEG (Negative); Color,Urine Amber (Yellow); Hyaline Casts,Urine 3 /LPF; Mucus,Urine 1+ /HPF
[2018-04-24] MEDS ORDERED: TYLENOL PO ONE (22:30)
[2018-04-24] MEDS ORDERED: TYLENOL ONE (22:31)
[2018-04-24] MEDS ORDERED: ZOFRAN IV ONE (23:55)
[2018-04-24] MEDS ORDERED: MORPHINE IV ONE (23:55)
--- NOTE | 2018-04-24 23:57 | Emergency Department Report ---
ED General Adult HPI - General Chief complaint: Abdominal Pain Stated complaint: ABD PAIN Time Seen by Provider: 04/24/18 23:50 Source: patient Mode of arrival: Ambulatory Limitations: No Limitations - History of Present Illness Initial comments: Patient complains of left lower quadrant abdominal pain that started a day ago. Patient states the pain radiates from her left flank into the left lower aspect of her abdomen. Patient's cause of pain is sharp in nature and denies anything making better or worse. Also complains of nausea and vomiting. -: Sudden Location: abdomen Radiation: other (radiates from left flank into the left lower quadrant) Severity scale (0 -10): 7 Quality: sharp Improves with: none Worsens with: none Associated Symptoms: denies other symptoms Treatments Prior to Arrival: none - Related Data Previous Rx's Medication Instructions Recorded Last Taken Type Aspirin [Aspirin BABY CHEW TAB] 81 mg PO QDAY #30 tab.chew 03/27/16 Unknown Rx Carvedilol [Coreg] 12.5 mg PO BID #60 tablet 03/27/16 Unknown Rx Furosemide [Lasix TAB] 40 mg PO BID #60 tablet 03/27/16 Unknown Rx Lisinopril [Zestril TAB] 10 mg PO BID #60 tablet 03/27/16 Unknown Rx Potassium Chloride [K-Dur] 10 meq PO QDAY #30 tablet 03/27/16 Unknown Rx Spironolactone [Aldactone] 25 mg PO QDAY #30 tablet 03/27/16 Unknown Rx guaiFENesin/DEXTROMETHORPHAN 5 ml PO Q6HR PRN #120 syrup 03/27/16 Unknown Rx [Tussin Dm Cough Syrup] Acetaminophen [Tylenol Arthritis] 650 mg PO Q6HR PRN #30 tablet.er 03/18/17 Unknown Rx Ciprofloxacin HCl [Ciprofloxacin 500 mg PO Q12HR #14 tab 03/18/17 Unknown Rx TAB] Metoclopramide [Reglan] 10 mg PO QID PRN #30 tablet 03/18/17 Unknown Rx metroNIDAZOLE [Flagyl] 500 mg PO Q8HR #21 tablet 03/18/17 Unknown Rx oxyCODONE [Roxicodone] 5 mg PO Q6HR PRN #15 tablet 03/18/17 Unknown Rx Amoxicillin/K Clav Tab [Augmentin 1 tab PO Q12HR #20 tab 11/12/17 Unknown Rx 875 mg] Ciprofloxacin/Hydrocortisone 3 drop OT BID 7 Days bottle 11/12/17 Unknown Rx [Ciprofloxacin HC OTIC] traMADol [Ultram] 50 mg PO Q6HR PRN #12 tablet 11/12/17 Unknown Rx Ibuprofen [Motrin] 600 mg PO Q8H PRN #30 tablet 12/26/17 Unknown Rx Allergies Allergy/AdvReac Type Severity Reaction Status Date / Time pineapple Allergy Swelling Verified 12/26/17 16:09 SEAFOOD Allergy Swelling Uncoded 10/19/13 13:51 ED Review of Systems ROS: Stated complaint: ABD PAIN Other details as noted in HPI Comment: All other systems reviewed and negative Constitutional: denies: chills, fever Eyes: denies: eye pain, eye discharge, vision change ENT: denies: ear pain, throat pain Respiratory: denies: cough, shortness of breath, wheezing Cardiovascular: denies: chest pain, palpitations Endocrine: no symptoms reported Gastrointestinal: abdominal pain. denies: nausea, diarrhea Genitourinary: denies: urgency, dysuria, discharge Musculoskeletal: denies: back pain, joint swelling, arthralgia Skin: denies: rash, lesions Neurological: denies: headache, weakness, paresthesias Psychiatric: denies: anxiety, depression Hematological/Lymphatic: denies: easy bleeding, easy bruising ED Past Medical Hx - Past Medical History Previous Medical History?: Yes Hx Hypertension: Yes Hx Heart Attack/AMI: Yes (09/2014) Hx Congestive Heart Failure: Yes Hx Diabetes: Yes Hx Kidney Stones: Yes Hx Asthma: Yes Hx COPD: No Additional medical history: Morbid obesity. Defibrillator. gastric sleeve, 2017 - Surgical History Past Surgical History?: Yes Hx Internal Defibrillator: Yes - Social History Smoking Status: Never Smoker Substance Use Type: None - Medications Home Medications: Home Medications Medication Instructions Recorded Confirmed Last Taken Type Aspirin [Aspirin BABY CHEW TAB] 81 mg PO QDAY #30 tab.chew 03/27/16 Unknown Rx Carvedilol [Coreg] 12.5 mg PO BID #60 tablet 03/27/16 Unknown Rx Furosemide [Lasix TAB] 40 mg PO BID #60 tablet 03/27/16 Unknown Rx Lisinopril [Zestril TAB] 10 mg PO BID #60 tablet 03/27/16 Unknown Rx Potassium Chloride [K-Dur] 10 meq PO QDAY #30 tablet 03/27/16 Unknown Rx Spironolactone [Aldactone] 25 mg PO QDAY #30 tablet 03/27/16 Unknown Rx guaiFENesin/DEXTROMETHORPHAN 5 ml PO Q6HR PRN #120 syrup 03/27/16 Unknown Rx [Tussin Dm Cough Syrup] Acetaminophen [Tylenol Arthritis] 650 mg PO Q6HR PRN #30 tablet.er 03/18/17 Unknown Rx Ciprofloxacin HCl [Ciprofloxacin 500 mg PO Q12HR #14 tab 03/18/17 Unknown Rx TAB] Metoclopramide [Reglan] 10 mg PO QID PRN #30 tablet 03/18/17 Unknown Rx metroNIDAZOLE [Flagyl] 500 mg PO Q8HR #21 tablet 03/18/17 Unknown Rx oxyCODONE [Roxicodone] 5 mg PO Q6HR PRN #15 tablet 03/18/17 Unknown Rx Amoxicillin/K Clav Tab [Augmentin 1 tab PO Q12HR #20 tab 11/12/17 Unknown Rx 875 mg] Ciprofloxacin/Hydrocortisone 3 drop OT BID 7 Days bottle 11/12/17 Unknown Rx [Ciprofloxacin HC OTIC] traMADol [Ultram] 50 mg PO Q6HR PRN #12 tablet 11/12/17 Unknown Rx Ibuprofen [Motrin] 600 mg PO Q8H PRN #30 tablet 12/26/17 Unknown Rx ED Physical Exam - General Limitations: No Limitations General appearance: alert, in no apparent distress - Head Head exam: Present: atraumatic, normocephalic - Eye Eye exam: Present: normal appearance, PERRL, EOMI - ENT ENT exam: Present: mucous membranes moist - Neck Neck exam: Present: normal inspection - Respiratory Respiratory exam: Present: normal lung sounds bilaterally. Absent: respiratory distress, wheezes, rales - Cardiovascular Cardiovascular Exam: Present: regular rate, normal rhythm. Absent: systolic murmur, diastolic murmur, rubs, gallop - GI/Abdominal GI/Abdominal exam: Present: soft, tenderness (tenderness palpation of left lower quadrant), normal bowel sounds. Absent: distended - Extremities Exam Extremities exam: Present: normal inspection - Back Exam Back exam: Present: normal inspection - Neurological Exam Neurological exam: Present: alert, oriented X3, CN II-XII intact. Absent: motor sensory deficit - Psychiatric Psychiatric exam: Present: normal affect, normal mood - Skin Skin exam: Present: warm, dry, intact, normal color. Absent: rash ED Course Vital Signs 04/24/18 20:01 Temperature 98.7 F Pulse Rate 96 H Respiratory 18 Rate Blood Pressure 121/76 O2 Sat by Pulse 93 Oximetry ED Medical Decision Making - Lab Data Result diagrams: 04/24/18 20:32 04/24/18 20:32 Critical care attestation.: If time is entered above; I have spent that time in minutes in the direct care of this critically ill patient, excluding procedure time. ED Disposition Clinical Impression: Diverticulitis large intestine Disposition: - OP ADMIT IP TO THIS HOSP Is pt being admited?: Yes Does the pt Need Aspirin: No Condition: Fair Instructions: Abdominal Pain (ED) Referrals: PRIMARY CARE, [Primary Care Provider] - 3-5 Days Time of Disposition: 02:36
[2018-04-25 01:02] LABS: HCG Qualitative,Urine Negative (Negative)
--- NOTE | 2018-04-25 02:05 | Cat Scan Report ---
FINAL REPORT EXAM: CT ABDOMEN PELVIS WO CON HISTORY: llq ab pain COMPARISON: CT of the abdomen pelvis from February 2017. TECHNIQUE: Contiguous axial images were obtained. Additional sagittal and coronal reformatted images were obtained. FINDINGS: [id number] cardiac enlargement. Nonspecific linear densities at the lung bases likely reflecting atelectasis. No calcified gallstones. Liver is borderline enlarged measuring 23 centimeters. Spleen is normal size measuring 12 centimeters. Pancreas is unremarkable. Mild nodular thickening of adrenal glands. No nephrolithiasis or hydronephrosis. Aorta and IVC are normal in caliber. Focal wall thickening and fat stranding of the distal descending colon with inflamed diverticula outpouchings. Tiny pockets a gas adjacent to the sigmoid colon concerning for micro perforation (series 2, image 135). Remaining bowel loops normal in caliber. No bowel obstruction. The appendix is normal in caliber. Prior gastric sleeve procedure. Urinary bladder, uterus, ovaries are grossly unremarkable. Small amount of free fluid the pelvis which may be physiologic and/or reactive. Lumbar vertebral body heights preserved. Bony pelvis is grossly intact. IMPRESSION: Acute diverticulitis of the distal descending colon. Tiny pockets of gas at the margin the sigmoid colon concerning for micro perforation. No flako free air otherwise. No abscess. Small amount of reactive fluid in the pelvis.
[2018-04-25] MEDS ORDERED: LEVAQUIN 750MG/150ML 750 MG/150 ML BAG IV ONE ×2 (02:20→03:58)
[2018-04-25] MEDS ORDERED: FLAGYL 500 MG/100 ML 500 MG/100 ML BAG IV ONE ×2 (02:21→03:58)
[2018-04-25] MEDS ORDERED: ZOFRAN IV PRN (03:19)
[2018-04-25] MEDS ORDERED: SODIUM CHLORIDE FLUSH SYRINGE 10 ML IV PRN (03:19)
[2018-04-25] MEDS ORDERED: TYLENOL PO PRN (03:19)
--- NOTE | 2018-04-25 03:19 | History and Physical Report ---
History of Present Illness Date of examination: 04/25/18 History of present illness: 32 year old man with history of CAD, CHF, hypertension comes to the ER for evaluation of abdominal pain that started yesterday. Pain is in the left lower abdomen, sharp, very 30 seconds, intensity 8/10, radiating to the back , he cannot identify exacerbating or relieving factor. Admits to nausea, vomiting Review of systems Constitutional: no weight loss, chills Ears, eyes, nose, mouth and throat: no nasal congestion, no nasal discharge, no sinus pressure, no vision change, no red eye. Neck: No neck pain or rigidity. Cardiovascular: no palpitations Respiratory: no cough, shortness of breath Gastrointestinal: no hematochezia Genitourinary : no frequency , no hematuria Musculoskeletal: no joint swelling or muscle ache Integumentary: no rash, no pruritis Neurological: no parathesias, no numbness, no focal weakness Endocrine: no cold or heat intolerance, no polyuria or polydipsia Hematologic/Lymphatic: no easy bruising, no easy bleeding, no gland swelling Allergic/Immunologic: no urticaria, no angioedema. PAST MEDICAL HISTORY: CAD CHF, hypertension PAST SURGICAL HISTORY: Defibrillator, gastric sleeve SOCIAL HISTORY: No alcohol, no drugs, tobacco FAMILY HISTORY: Hypertension Medications and Allergies Allergies Allergy/AdvReac Type Severity Reaction Status Date / Time pineapple Allergy Swelling Verified 12/26/17 16:09 SEAFOOD Allergy Swelling Uncoded 10/19/13 13:51 Home Medications Medication Instructions Recorded Confirmed Last Taken Type Aspirin [Aspirin BABY CHEW TAB] 81 mg PO QDAY #30 tab.chew 03/27/16 04/25/18 Rx Carvedilol [Coreg] 12.5 mg PO BID #60 tablet 03/27/16 04/25/18 04/24/18 Rx Furosemide [Lasix TAB] 40 mg PO BID #60 tablet 03/27/16 04/25/18 04/24/18 Rx Lisinopril [Zestril TAB] 10 mg PO BID #60 tablet 03/27/16 04/25/18 04/24/18 Rx Potassium Chloride [K-Dur] 10 meq PO QDAY #30 tablet 03/27/16 04/25/18 04/24/18 Rx Active Meds: Active Medications Levofloxacin/Dextrose (Levaquin 750mg/150ml) 750 mg in 150 mls @ 100 mls/hr IV ONCE ONE Stop: 04/25/18 03:49 Metronidazole (Flagyl 500 Mg/100 Ml) 500 mg in 100 mls @ 100 mls/hr IV ONCE ONE ; Protocol Stop: 04/25/18 03:20 Exam - Physical Exam Narrative exam: Gen. appearance: Patient lying in bed, no apparent distress HEENT: Normocephalic, atraumatic, pupils equally round and reactive to light, eyes are , extraocular movement intact, and no sclericterus,. No JVD or thyromegaly or nodule,neck supple, no carotid bruit ,mucous membranes dry, no exudate or erythema Heart: S1, S2, regular rate and rhythm Lungs: Clear bilaterally, breathing comfortable Abdomen: Positive bowel sounds, tender in LLQ, nondistended, no organomegaly Extremity:no edema cyanosis, clubbing Skin: no rash, dry, WARM Neuro: Oriented 3, cranial nerves II-12 intact, speech is fluent, motor and sensory intact - Constitutional Vitals: Temp Pulse Resp BP Pulse Ox 99 F 86 16 111/59 92 04/25/18 02:55 04/25/18 02:55 04/25/18 02:55 04/25/18 02:55 04/25/18 02:55 Results - Labs CBC & Chem 7: 04/27/18 10:47 04/26/18 22:10 Labs: Abnormal lab results 04/24/18 04/24/18 04/24/18 Range/Units 20:32 20:32 21:26 MCH 27 L (28-32) pg RDW 16.1 H (13.2-15.2) % [place] % (Auto) 8.2 H (0.0-7.3) % [place] # 0.9 H (0.0-0.8) K/mm3 Seg Neutrophils % 70.8 H (40.0-70.0) % Sodium 136 L (137-145) mmol/L Creatinine 0.6 L (0.7-1.2) mg/dL U Epithel Cells (Auto) 25.0 H (0-13.0) /HPF Assessment and Plan Assessment Diverticulitis with microperation Hypertension CHF, stabe CAD Plan Admit to medicine Bowel rest, Start IV levaquin, flagyl, morphine Follow cultures, consult GI, surgery No IV fluid, secondary to CHF DVT prophalaxis
[2018-04-25] MEDS ORDERED: FLAGYL PO SCH ×2 (04:00→14:00)
[2018-04-25] MEDS: LOVENOX SUB-Q SCH ×2 (09:20→12:16)
[2018-04-25] MEDS: LASIX PO SCH ×3 (09:21→21:18)
[2018-04-25] MEDS: BABY ASPIRIN PO SCH (09:21)
[2018-04-25] MEDS: D5/0.45NS 1,000 ML IV SCH ×2 (09:21→19:03)
--- NOTE | 2018-04-25 09:22 | Event Note ---
Date: 04/25/18 Patient seen and examined, Continue current treatment. Continue hydration. Hold Antihypertensive including BB considering Hypotension.
[2018-04-25] MEDS: MORPHINE IV PRN (09:43)
[2018-04-25] MEDS ORDERED: LOVENOX SUB-Q SCH (10:00)
[2018-04-25] MEDS ORDERED: ZESTRIL PO SCH (10:00)
[2018-04-25] MEDS ORDERED: COREG PO SCH (10:00)
[2018-04-25] MEDS: SODIUM CHLORIDE FLUSH SYRINGE 10 ML IV SCH ×2 (12:17→21:20)
--- NOTE | 2018-04-25 13:12 | Consultation ---
History of Present Illness Consult date: 04/25/18 Chief complaint: diverticulitis - History of present illness History of present illness: 32 yo F with hx of CHF c/p AICD and morbid obesity s/p lap sleeve gastrectomy last year presents with c/o 2 days of LLQ abd pain. Nonradiating, sharp in nature. It came on suddenly and patient thought she may have UTI and tried to treat herself. However, the pain got worse and persisted. She states she has not had a BM in 2 days but is passing flatus. She has never had pain like this before. She denies f/c, cp, sob. + emesis x1 (nonbloody/nonbilious). No dysuria. She has never had a cscope. 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 Past History Past Medical History: heart failure, other (morbid obesity) Past Surgical History: Other (lap sleeve gastrectomy, AICD) Social history: no significant social history. denies: smoking, alcohol abuse, prescription drug abuse Family history: no significant family history Medications and Allergies Allergies Allergy/AdvReac Type Severity Reaction Status Date / Time pineapple Allergy Swelling Verified 12/26/17 16:09 SEAFOOD Allergy Swelling Uncoded 10/19/13 13:51 Home Medications Medication Instructions Recorded Confirmed Last Taken Type Aspirin [Aspirin BABY CHEW TAB] 81 mg PO QDAY #30 tab.chew 03/27/16 04/25/18 Rx Carvedilol [Coreg] 12.5 mg PO BID #60 tablet 03/27/16 04/25/18 04/24/18 Rx Furosemide [Lasix TAB] 40 mg PO BID #60 tablet 03/27/16 04/25/18 04/24/18 Rx Lisinopril [Zestril TAB] 10 mg PO BID #60 tablet 03/27/16 04/25/18 04/24/18 Rx Potassium Chloride [K-Dur] 10 meq PO QDAY #30 tablet 03/27/16 04/25/18 04/24/18 Rx Active Meds: Active Medications Acetaminophen (Tylenol) 650 mg PO Q4H PRN PRN Reason: Pain MILD(1-3)/Fever >100.5/CRUZ Aspirin (Baby Aspirin) 81 mg PO QDAY [facility] Last Admin: 04/25/18 09:21 Dose: 81 mg Enoxaparin Sodium (Lovenox) 40 mg SUB-Q QDAY@1000 [facility] Last Admin: 04/25/18 12:16 Dose: 40 mg Furosemide (Lasix) 40 mg PO BID [facility] Last Admin: 04/25/18 09:21 Dose: 40 mg Levofloxacin/Dextrose (Levaquin 750mg/150ml) 750 mg in 150 mls @ 100 mls/hr IV Q24HR@0600 [facility]; Protocol Dextrose/Sodium Chloride (D5/0.45ns) 1,000 mls @ 100 mls/hr IV DIRECT [facility] Last Admin: 04/25/18 09:21 Dose: 100 mls/hr Metronidazole (Flagyl) 500 mg PO Q8HR [facility]; Protocol Morphine Sulfate (Morphine) 2 mg IV Q4H PRN PRN Reason: Pain, Moderate (4-6) Last Admin: 04/25/18 09:43 Dose: 2 mg Ondansetron HCl (Zofran) 4 mg IV Q8H PRN PRN Reason: Nausea And Vomiting Sodium Chloride (Sodium Chloride Flush Syringe 10 Ml) 10 ml IV BID [facility] Last Admin: 04/25/18 12:17 Dose: 10 ml Sodium Chloride (Sodium Chloride Flush Syringe 10 Ml) 10 ml IV PRN PRN PRN Reason: LINE FLUSH Review of Systems All systems: negative (10 pt ROS performed and negative except for that listed in HPI) Exam Vital Signs Temp Pulse Resp BP Pulse Ox 98.7 F 96 H 18 121/76 93 04/24/18 20:01 04/24/18 20:01 04/24/18 20:01 04/24/18 20:01 04/24/18 20:01 Narrative exam: Gen: AAOx3. NAD ENT: no scleral icterus or conjunctival pallor CV: S1, S2+ Resp: even and unlabored Abd: soft, obese, ND, + LLQ and suprapubic TTP. No r/r/g Ext: no c/c/e Results - Labs 04/24/18 20:32 04/24/18 20:32 Abnormal lab results 04/24/18 04/24/18 04/24/18 Range/Units 20:32 20:32 21:26 MCH 27 L (28-32) pg RDW 16.1 H (13.2-15.2) % [place] % (Auto) 8.2 H (0.0-7.3) % [place] # 0.9 H (0.0-0.8) K/mm3 Seg Neutrophils % 70.8 H (40.0-70.0) % Sodium 136 L (137-145) mmol/L Creatinine 0.6 L (0.7-1.2) mg/dL U Epithel Cells (Auto) 25.0 H (0-13.0) /HPF Diabetes panel 04/24/18 Range/Units 20:32 Sodium 136 L (137-145) mmol/L Potassium 4.1 (3.6-5.0) mmol/L Chloride 98.4 (98-107) mmol/L Carbon Dioxide 29 (22-30) mmol/L BUN 7 (7-17) mg/dL Creatinine 0.6 L (0.7-1.2) mg/dL Glucose 92 (65-100) mg/dL Calcium 9.4 (8.4-10.2) mg/dL AST 17 (5-40) units/L ALT 9 (7-56) units/L Alkaline Phosphatase 60 (35-129) units/L Total Protein 7.7 (6.3-8.2) g/dL Albumin 3.9 (3.9-5) g/dL Calcium panel 04/24/18 Range/Units 20:32 Calcium 9.4 (8.4-10.2) mg/dL Albumin 3.9 (3.9-5) g/dL Pituitary panel 04/24/18 Range/Units 20:32 Sodium 136 L (137-145) mmol/L Potassium 4.1 (3.6-5.0) mmol/L Chloride 98.4 (98-107) mmol/L Carbon Dioxide 29 (22-30) mmol/L BUN 7 (7-17) mg/dL Creatinine 0.6 L (0.7-1.2) mg/dL Glucose 92 (65-100) mg/dL Calcium 9.4 (8.4-10.2) mg/dL Adrenal panel 04/24/18 Range/Units 20:32 Sodium 136 L (137-145) mmol/L Potassium 4.1 (3.6-5.0) mmol/L Chloride 98.4 (98-107) mmol/L Carbon Dioxide 29 (22-30) mmol/L BUN 7 (7-17) mg/dL Creatinine 0.6 L (0.7-1.2) mg/dL Glucose 92 (65-100) mg/dL Calcium 9.4 (8.4-10.2) mg/dL Total Bilirubin 0.90 (0.1-1.2) mg/dL AST 17 (5-40) units/L ALT 9 (7-56) units/L Alkaline Phosphatase 60 (35-129) units/L Total Protein 7.7 (6.3-8.2) g/dL Albumin 3.9 (3.9-5) g/dL - Imaging CT scan - abdomen: report reviewed, image reviewed CT scan - pelvis: report reviewed, image reviewed Assessment and Plan 32 yo with uncomplicated diverticulitis of descending and sigmoid colon Plan; 1. Keep NPO as patient is have significant TTP, may give ice chips 2. IVF 3. IV abx - on levaquin and flagyl 4. serial abdominal exams 5. prn pain control 6. DVT ppx 7. GI consult pending I have provided education to the patient regarding diverticular disease and diverticulitis. At this point, she is suffering her first known episode of diverticulitis. She does not have an abscess or free perforation. She can be managed conservatively. However, she will need a colonoscopy as an outpatient in 6-8 weeks per GI to evaluate the colon. Following this, she may follow up in surgery office for further discussion about surgery. I explained to her, since this is her first episode, she does not need to decide on surgery now. However, she is young and there is a chance she may have another episode and at this point I would strongly recommend surgery. She understands and all of her questions were answered. Thank you for this consultation, will follow with you.
--- NOTE | 2018-04-25 15:01 | Gastroenterology Consultation ---
<DIANA MICHEL - Last Filed: 04/25/18 15:08> History of Present Illness - Reason for Consult Consult date: 04/25/18 diverticulitis Requesting physician: LETTY SHAFER - History of Present Illness Patient is a 32 y/o female with PMH of CHF (s/p AICD) and morbid obesity (s/p gastric sleeve) who presented to ED with c/o LLQ non-radiating abd pain with associated N/V. Abd CT revealed acute diverticulitis with microperforation but no abscess to which GI has been consulted. Surgery following. This afternoon patient was resting in bed w/o acute distess. Reports continued nausea and LLQ abd pain but states her pain has improved with pain medication. Tolerating ice chips w/o any further episodes of vomiting. Denies fever, wt loss, CP, SOB, signs of bleeding, diarrhea, or constipation. No previous episode of diverticulitis. No Fhx of colon CA. Past History Past Medical History: heart failure, other (morbid obesity) Past Surgical History: Other (lap sleeve gastrectomy, AICD) Social history: no significant social history. denies: smoking, alcohol abuse, prescription drug abuse Family history: no significant family history Medications and Allergies Allergies Allergy/AdvReac Type Severity Reaction Status Date / Time pineapple Allergy Swelling Verified 12/26/17 16:09 SEAFOOD Allergy Swelling Uncoded 10/19/13 13:51 Home Medications Medication Instructions Recorded Confirmed Last Taken Type Aspirin [Aspirin BABY CHEW TAB] 81 mg PO QDAY #30 tab.chew 03/27/16 04/25/18 Rx Carvedilol [Coreg] 12.5 mg PO BID #60 tablet 03/27/16 04/25/18 04/24/18 Rx Furosemide [Lasix TAB] 40 mg PO BID #60 tablet 03/27/16 04/25/18 04/24/18 Rx Lisinopril [Zestril TAB] 10 mg PO BID #60 tablet 03/27/16 04/25/18 04/24/18 Rx Potassium Chloride [K-Dur] 10 meq PO QDAY #30 tablet 03/27/16 04/25/18 04/24/18 Rx Active Meds: Active Medications Acetaminophen (Tylenol) 650 mg PO Q4H PRN PRN Reason: Pain MILD(1-3)/Fever >100.5/CRUZ Aspirin (Baby Aspirin) 81 mg PO QDAY [facility] Last Admin: 04/25/18 09:21 Dose: 81 mg Enoxaparin Sodium (Lovenox) 40 mg SUB-Q QDAY@1000 NALINI Last Admin: 04/25/18 12:16 Dose: 40 mg Furosemide (Lasix) 40 mg PO BID [facility] Last Admin: 04/25/18 09:21 Dose: 40 mg Levofloxacin/Dextrose (Levaquin 750mg/150ml) 750 mg in 150 mls @ 100 mls/hr IV Q24HR@0600 [facility]; Protocol Dextrose/Sodium Chloride (D5/0.45ns) 1,000 mls @ 100 mls/hr IV DIRECT [facility] Last Admin: 04/25/18 09:21 Dose: 100 mls/hr Metronidazole (Flagyl) 500 mg PO Q8HR [facility]; Protocol Morphine Sulfate (Morphine) 2 mg IV Q4H PRN PRN Reason: Pain, Moderate (4-6) Last Admin: 04/25/18 09:43 Dose: 2 mg Ondansetron HCl (Zofran) 4 mg IV Q8H PRN PRN Reason: Nausea And Vomiting Sodium Chloride (Sodium Chloride Flush Syringe 10 Ml) 10 ml IV BID [facility] Last Admin: 04/25/18 12:17 Dose: 10 ml Sodium Chloride (Sodium Chloride Flush Syringe 10 Ml) 10 ml IV PRN PRN PRN Reason: LINE FLUSH Review of Systems - Review of Systems All systems: negative Gastrointestinal: abdominal pain, nausea, vomiting Exam - Constitutional Vital Signs: Temp Pulse Resp BP Pulse Ox 99.2 F 92 H 16 95/48 90 04/25/18 04:43 04/25/18 09:23 04/25/18 04:43 04/25/18 09:23 04/25/18 09:23 General appearance: no acute distress, other (morbidly obese) - EENT Eyes: PERRL, EOM intact ENT: hearing intact - Respiratory Respiratory: bilateral: CTA - Cardiovascular Rhythm: regular Heart Sounds: Present: S1 & S2 - Gastrointestinal General gastrointestinal: Present: soft, tender (LLQ), normal bowel sounds, other (morbidly obese) - Neurologic Neurological: alert and oriented x3 - Labs CBC & Chem 7: 04/24/18 20:32 04/24/18 20:32 Lab Results: Laboratory Results - last 24 hr 04/24/18 04/24/18 04/24/18 20:32 20:32 21:26 WBC 10.6 RBC 4.65 Hgb 12.6 Hct 39.5 MCV 85 MCH 27 L MCHC 32 RDW 16.1 H Plt Count 302 Lymph % (Auto) 19.2 [place] % (Auto) 8.2 H Eos % (Auto) 1.3 Baso % (Auto) 0.5 Lymph # 2.0 [place] # 0.9 H Eos # 0.1 Baso # 0.1 Seg Neutrophils % 70.8 H Seg Neutrophils # 7.5 Sodium 136 L Potassium 4.1 Chloride 98.4 Carbon Dioxide 29 Anion Gap 13 BUN 7 Creatinine 0.6 L Estimated GFR > 60 BUN/Creatinine Ratio 12 Glucose 92 Calcium 9.4 Total Bilirubin 0.90 AST 17 ALT 9 Alkaline Phosphatase 60 Total Protein 7.7 Albumin 3.9 Albumin/Globulin Ratio 1.0 Urine Color Germaine Urine Turbidity Clear Urine pH 5.0 Ur Specific [place] 1.023 Urine Protein 30 mg/dl Urine Glucose (UA) Neg Urine Ketones Neg Urine Blood Neg Urine Nitrite Neg Urine Bilirubin Neg Urine Urobilinogen 4.0 Ur Leukocyte Esterase Neg Urine WBC (Auto) 5.0 Urine RBC (Auto) 6.0 U Epithel Cells (Auto) 25.0 H Hyaline Casts 3 Urine Mucus 1+ Urine HCG, Qual 04/24/18 21:26 WBC RBC Hgb Hct MCV MCH MCHC RDW Plt Count Lymph % (Auto) [place] % (Auto) Eos % (Auto) Baso % (Auto) Lymph # [place] # Eos # Baso # Seg Neutrophils % Seg Neutrophils # Sodium Potassium Chloride Carbon Dioxide Anion Gap BUN Creatinine Estimated GFR BUN/Creatinine Ratio Glucose Calcium Total Bilirubin AST ALT Alkaline Phosphatase Total Protein Albumin Albumin/Globulin Ratio Urine Color Urine Turbidity Urine pH Ur Specific [place] Urine Protein Urine Glucose (UA) Urine Ketones Urine Blood Urine Nitrite Urine Bilirubin Urine Urobilinogen Ur Leukocyte Esterase Urine WBC (Auto) Urine RBC (Auto) U Epithel Cells (Auto) Hyaline Casts Urine Mucus Urine HCG, Qual Negative Assessment and Plan 1.acute diverticulitis -Temp 99.2 -WBC-WNL -abd CT revealed acute diverticulitis with microperforation -tolerating ice chips -continue antibiotics and supportive care -recommend patient have an outpatient colonoscopy in approximately 6-8 weeks to r/o neoplasm -will need follow up clinic appt upon d/c in 3-4 weeks to schedule colonosocpy- need for colonoscopy discussed with patient- understanding voiced and office information with card given -further management per surgery -will sign off, please call if needed <CECI CHAVES R - Last Filed: 04/25/18 15:25> Medications and Allergies Active Meds: Active Medications Acetaminophen (Tylenol) 650 mg PO Q4H PRN PRN Reason: Pain MILD(1-3)/Fever >100.5/CRUZ Aspirin (Baby Aspirin) 81 mg PO QDAY [facility] Last Admin: 04/25/18 09:21 Dose: 81 mg Enoxaparin Sodium (Lovenox) 40 mg SUB-Q QDAY@1000 NALINI Last Admin: 04/25/18 12:16 Dose: 40 mg Furosemide (Lasix) 40 mg PO BID [facility] Last Admin: 04/25/18 09:21 Dose: 40 mg Levofloxacin/Dextrose (Levaquin 750mg/150ml) 750 mg in 150 mls @ 100 mls/hr IV Q24HR@0600 [facility]; Protocol Dextrose/Sodium Chloride (D5/0.45ns) 1,000 mls @ 100 mls/hr IV DIRECT [facility] Last Admin: 04/25/18 09:21 Dose: 100 mls/hr Metronidazole (Flagyl) 500 mg PO Q8HR [facility]; Protocol Morphine Sulfate (Morphine) 2 mg IV Q4H PRN PRN Reason: Pain, Moderate (4-6) Last Admin: 04/25/18 09:43 Dose: 2 mg Ondansetron HCl (Zofran) 4 mg IV Q8H PRN PRN Reason: Nausea And Vomiting Sodium Chloride (Sodium Chloride Flush Syringe 10 Ml) 10 ml IV BID [facility] Last Admin: 04/25/18 12:17 Dose: 10 ml Sodium Chloride (Sodium Chloride Flush Syringe 10 Ml) 10 ml IV PRN PRN PRN Reason: LINE FLUSH Exam - Constitutional Vital Signs: Temp Pulse Resp BP Pulse Ox 99.2 F 92 H 16 95/48 90 04/25/18 04:43 04/25/18 09:23 04/25/18 04:43 04/25/18 09:23 04/25/18 09:23 - Labs CBC & Chem 7: 04/24/18 20:32 04/24/18 20:32 Lab Results: Laboratory Results - last 24 hr 04/24/18 04/24/18 04/24/18 20:32 20:32 21:26 WBC 10.6 RBC 4.65 Hgb 12.6 Hct 39.5 MCV 85 MCH 27 L MCHC 32 RDW 16.1 H Plt Count 302 Lymph % (Auto) 19.2 [place] % (Auto) 8.2 H Eos % (Auto) 1.3 Baso % (Auto) 0.5 Lymph # 2.0 [place] # 0.9 H Eos # 0.1 Baso # 0.1 Seg Neutrophils % 70.8 H Seg Neutrophils # 7.5 Sodium 136 L Potassium 4.1 Chloride 98.4 Carbon Dioxide 29 Anion Gap 13 BUN 7 Creatinine 0.6 L Estimated GFR > 60 BUN/Creatinine Ratio 12 Glucose 92 Calcium 9.4 Total Bilirubin 0.90 AST 17 ALT 9 Alkaline Phosphatase 60 Total Protein 7.7 Albumin 3.9 Albumin/Globulin Ratio 1.0 Urine Color [place] Urine Turbidity Clear Urine pH 5.0 Ur Specific [place] 1.023 Urine Protein 30 mg/dl Urine Glucose (UA) Neg Urine Ketones Neg Urine Blood Neg Urine Nitrite Neg Urine Bilirubin Neg Urine Urobilinogen 4.0 Ur Leukocyte Esterase Neg Urine WBC (Auto) 5.0 Urine RBC (Auto) 6.0 U Epithel Cells (Auto) 25.0 H Hyaline Casts 3 Urine Mucus 1+ Urine HCG, Qual 04/24/18 21:26 WBC RBC Hgb Hct MCV MCH MCHC RDW Plt Count Lymph % (Auto) [place] % (Auto) Eos % (Auto) Baso % (Auto) Lymph # [place] # Eos # Baso # Seg Neutrophils % Seg Neutrophils # Sodium Potassium Chloride Carbon Dioxide Anion Gap BUN Creatinine Estimated GFR BUN/Creatinine Ratio Glucose Calcium Total Bilirubin AST ALT Alkaline Phosphatase Total Protein Albumin Albumin/Globulin Ratio Urine Color Urine Turbidity Urine pH Ur Specific [place] Urine Protein Urine Glucose (UA) Urine Ketones Urine Blood Urine Nitrite Urine Bilirubin Urine Urobilinogen Ur Leukocyte Esterase Urine WBC (Auto) Urine RBC (Auto) U Epithel Cells (Auto) Hyaline Casts Urine Mucus Urine HCG, Qual Negative Assessment and Plan 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 Neto Judge. She has cardiomyopathy with LVEF = 20-25%. Plan as above. - abx x 2 wks - outpatient f/u with repeat imaging in 2 wks, and then plans as noted.
[2018-04-25] MEDS: COREG PO SCH (21:17)
[2018-04-25] MEDS: FLAGYL 500 MG/100 ML 500 MG/100 ML BAG IV SCH (21:19)
[2018-04-26] MEDS: MORPHINE IV PRN
[2018-04-26] MEDS: D5/0.45NS 1,000 ML IV SCH (05:22)
[2018-04-26] MEDS: FLAGYL 500 MG/100 ML 500 MG/100 ML BAG IV SCH ×3 (05:23→23:36)
[2018-04-26] MEDS ORDERED: LEVAQUIN 750MG/150ML 750 MG/150 ML BAG IV SCH (06:00)
[2018-04-26] MEDS: COREG PO SCH ×2 (09:45→22:37)
[2018-04-26] MEDS: LOVENOX SUB-Q SCH (09:45)
[2018-04-26] MEDS: SODIUM CHLORIDE FLUSH SYRINGE 10 ML IV SCH ×2 (09:45→22:47)
[2018-04-26] MEDS: LASIX PO SCH ×2 (09:45→22:40)
[2018-04-26] MEDS: BABY ASPIRIN PO SCH (09:45)
--- NOTE | 2018-04-26 13:44 | Progress Note ---
Assessment and Plan 32 yo F with uncomplicated diverticuliltis of sigmoid and descending colon Plan: 1. start clear liquids 2. public health staff nurse consult 3. IV abx - levaquin and flagyl 4. prn pain control 5. outpatient GI follow up 6. serial abdominal exams Thank you for this consultation, please call with questions or concerns. Subjective Date of service: 04/26/18 Narrative: Pt seen and examined. Feels better today. States pain now feels like a pressure. No n/v. No f/c. Tolerated ice chips. Feels hungry. + Flatus, no BM. Objective Vital Signs - 12hr 04/26/18 04/26/18 04/26/18 03:32 06:22 12:08 Temperature 98.3 F 98.0 F Pulse Rate 71 67 Respiratory 16 19 Rate Respiratory 18 Rate [ GENERALIZED] Blood Pressure 101/44 113/63 O2 Sat by Pulse 98 97 Oximetry - General physical appearance Narrative Exam: Gen: AAOx3. NAD CV: S1, S2+ Resp: even and unlabored Abd: soft, ND, mild TTP in LLQ - improved since yesterdays exam, no r/r/g Ext: no c/c/e - Labs 04/24/18 20:32 04/25/18 19:14 Diabetes panel 04/25/18 Range/Units 19:14 Potassium 4.1 (3.6-5.0) mmol/L Pituitary panel 04/25/18 Range/Units 19:14 Potassium 4.1 (3.6-5.0) mmol/L Adrenal panel 04/25/18 Range/Units 19:14 Potassium 4.1 (3.6-5.0) mmol/L
--- NOTE | 2018-04-26 15:16 | Progress Note ---
Assessment and Plan Assessment and plan: 32 year old man with history of CAD, CHF, cardiomyopathy with ejection fraction of 20-30% hypertension comes to the ER for evaluation of abdominal pain that started yesterday. Pain is in the left lower abdomen, sharp, very 30 seconds, intensity 8/10, radiating to the back , he cannot identify exacerbating or relieving factor. Admits to nausea, vomiting 32 year old man with history of CAD, CHF, hypertension comes to the ER for evaluation of abdominal pain that started yesterday. 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 Denies any chest pain nausea vomiting reports increased flatus but no bowel movement yet. Hospitalist Physical - Physical exam Narrative exam: VITAL SIGNS: Reviewed. GENERAL: The patient appeared well nourished and normally developed. Morbidly obese. Vital signs as documented. HEAD: No signs of head trauma. EYES: Pupils are equal. Extraocular motions intact. EARS: Hearing grossly intact. MOUTH: Oropharynx is normal. NECK: No adenopathy, no JVD. CHEST: Chest with clear breath sounds bilaterally. No wheezes, rales, or rhonchi. CARDIAC: Regular rate and rhythm. S1 and S2, without murmurs, gallops, or rubs. VASCULAR: No Edema. Peripheral pulses normal and equal in all extremities. ABDOMEN: Soft, generalized tenderness. No sign of distention. No rebound or guarding, and no masses palpated. Bowel Sounds normal. MUSCULOSKELETAL: Good range of motion of all major joints. Extremities without clubbing, cyanosis or edema. NEUROLOGIC EXAM: Alert and oriented x 3. No focal sensory or strength deficits. Speech normal. Follows commands. PSYCHIATRIC: Mood normal. SKIN: No rash or lesions. - Constitutional Vitals: Temp Pulse Resp BP Pulse Ox 98.0 F 67 19 113/63 97 04/26/18 12:08 04/26/18 12:08 04/26/18 12:08 04/26/18 12:08 04/26/18 12:08 Results - Labs CBC & Chem 7: 04/24/18 20:32 04/25/18 19:14 Labs: Laboratory Last Values WBC 10.6 K/mm3 (4.5-11.0) 04/24/18 20:32 RBC 4.65 M/mm3 (3.65-5.03) 04/24/18 20:32 Hgb 12.6 gm/dl (10.1-14.3) 04/24/18 20:32 Hct 39.5 % (30.3-42.9) 04/24/18 20:32 MCV 85 fl (79-97) 04/24/18 20:32 MCH 27 pg (28-32) L 04/24/18 20:32 MCHC 32 % (30-34) 04/24/18 20:32 RDW 16.1 % (13.2-15.2) H 04/24/18 20:32 Plt Count 302 K/mm3 (140-440) 04/24/18 20:32 Lymph % (Auto) 19.2 % (13.4-35.0) 04/24/18 20:32 [place] % (Auto) 8.2 % (0.0-7.3) H 04/24/18 20:32 Eos % (Auto) 1.3 % (0.0-4.3) 04/24/18 20:32 Baso % (Auto) 0.5 % (0.0-1.8) 04/24/18 20:32 Lymph # 2.0 K/mm3 (1.2-5.4) 04/24/18 20:32 [place] # 0.9 K/mm3 (0.0-0.8) H 04/24/18 20:32 Eos # 0.1 K/mm3 (0.0-0.4) 04/24/18 20:32 Baso # 0.1 K/mm3 (0.0-0.1) 04/24/18 20:32 Seg Neutrophils % 70.8 % (40.0-70.0) H 04/24/18 20:32 Seg Neutrophils # 7.5 K/mm3 (1.8-7.7) 04/24/18 20:32 Sodium 136 mmol/L (137-145) L 04/24/18 20:32 Potassium 4.1 mmol/L (3.6-5.0) 04/25/18 19:14 Chloride 98.4 mmol/L (98-107) 04/24/18 20:32 Carbon Dioxide 29 mmol/L (22-30) 04/24/18 20:32 Anion Gap 13 mmol/L 04/24/18 20:32 BUN 7 mg/dL (7-17) 04/24/18 20:32 Creatinine 0.6 mg/dL (0.7-1.2) L 04/24/18 20:32 Estimated GFR > 60 ml/min 04/24/18 20:32 BUN/Creatinine Ratio 12 % 04/24/18 20:32 Glucose 92 mg/dL (65-100) 04/24/18 20:32 Calcium 9.4 mg/dL (8.4-10.2) 04/24/18 20:32 Magnesium 1.70 mg/dL (1.7-2.3) 04/25/18 19:14 Total Bilirubin 0.90 mg/dL (0.1-1.2) 04/24/18 20:32 AST 17 units/L (5-40) 04/24/18 20:32 ALT 9 units/L (7-56) 04/24/18 20:32 Alkaline Phosphatase 60 units/L (35-129) 04/24/18 20:32 Total Protein 7.7 g/dL (6.3-8.2) 04/24/18 20:32 Albumin 3.9 g/dL (3.9-5) 04/24/18 20:32 Albumin/Globulin Ratio 1.0 % 04/24/18 20:32 Urine Color Germaine (Yellow) 04/24/18 21:26 Urine Turbidity Clear (Clear) 04/24/18 21:26 Urine pH 5.0 (5.0-7.0) 04/24/18 21:26 Ur Specific [place] 1.023 (1.003-1.030) 04/24/18 21:26 Urine Protein 30 mg/dl mg/dL (Negative) 04/24/18 21:26 Urine Glucose (UA) Neg mg/dL (Negative) 04/24/18 21:26 Urine Ketones Neg mg/dL (Negative) 04/24/18 21:26 Urine Blood Neg (Negative) 04/24/18 21:26 Urine Nitrite Neg (Negative) 04/24/18 21:26 Urine Bilirubin Neg (Negative) 04/24/18 21:26 Urine Urobilinogen 4.0 mg/dL (<2.0) 04/24/18 21:26 Ur Leukocyte Esterase Neg (Negative) 04/24/18 21:26 Urine WBC (Auto) 5.0 /HPF (0.0-6.0) 04/24/18 21:26 Urine RBC (Auto) 6.0 /HPF (0.0-6.0) 04/24/18 21:26 U Epithel Cells (Auto) 25.0 /HPF (0-13.0) H 04/24/18 21:26 Hyaline Casts 3 /LPF 04/24/18 21:26 Urine Mucus 1+ /HPF 04/24/18 21:26 Urine HCG, Qual Negative (Negative) 04/24/18 21:26
--- NOTE | 2018-04-26 16:47 | Event Note ---
Date: 04/26/18 I spoke with the patient's daughter L
[2018-04-26] MEDS ORDERED: LASIX IV ONE (17:54)
[2018-04-26] MEDS: FLAGYL PO SCH (23:34)
[2018-04-27] MEDS: FLAGYL PO SCH ×2 (08:56→16:17)
[2018-04-27] MEDS ORDERED: MAGNESIUM SULFATE IV ONE (09:51)
[2018-04-27] MEDS ORDERED: K-DUR PO ONE (09:51)
[2018-04-27] MEDS: SODIUM CHLORIDE FLUSH SYRINGE 10 ML IV SCH ×2 (10:18→10:24)
[2018-04-27] MEDS: LASIX PO SCH ×2 (10:18→23:57)
[2018-04-27] MEDS: COREG PO SCH ×2 (10:19→23:56)
[2018-04-27] MEDS: BABY ASPIRIN PO SCH (10:19)
[2018-04-27] MEDS: LEVAQUIN PO SCH (10:19)
[2018-04-27] MEDS: LOVENOX SUB-Q SCH (10:20)
[2018-04-27] MEDS ORDERED: MAGNESIUM SULFATE 1 GM in NACL 0.9% 50 ML IV ONE (11:00)
[2018-04-27 11:15] LABS: Hemoglobin 11.7 gm/dl (10.1-14.3); Mean Corpuscular HGB Conc 33 % (30-34); Mean Corpuscular Hemoglobin 28 pg (28-32); Mean Corpuscular Volume 85 fl (79-97); Platelet Count 251 K/mm3 (140-440); Red Blood Count 4.22 M/mm3 (3.65-5.03); Red Cell Distribution Width 15.3 % (13.2-15.2)
--- NOTE | 2018-04-27 12:08 | Progress Note ---
Assessment and Plan 32 yo F with uncomplicated diverticuliltis of sigmoid and descending colon Plan: 1. adv diet as gagan to GI soft diet. Started full liquids today 2. real estate legal secretary consult. Patient educated on diet. 3. IV abx - levaquin and flagyl. Pt lost IV access and did not allow replacement. On PO abx per 1' service. Please continue for 14 days total 4. prn pain control 5. outpatient GI follow up 6. serial abdominal exams 7. dc IVF Thank you for this consultation, please call with questions or concerns. Subjective Date of service: 04/27/18 Narrative: Pt seen and examined. Feeling better today and states the abdominal discomfort is getting better. No n/v, f/c. Tolerated clear liquids without difficulty. Had one normal BM last night. Objective Vital Signs - 12hr 04/27/18 04/27/18 06:01 10:19 Temperature 98.5 F Pulse Rate 70 70 Respiratory 18 Rate Blood Pressure 99/45 118/65 O2 Sat by Pulse 90 Oximetry - General physical appearance Narrative Exam: Gen: AAOx3. NAD CV: S1, S2+ Resp: even and unlabored Abd: soft, NT, ND. No r/r/g Ext: no c/c/e - Labs 04/27/18 10:47 04/26/18 22:10 Diabetes panel 04/26/18 Range/Units 22:10 Potassium 4.0 (3.6-5.0) mmol/L Pituitary panel 04/26/18 Range/Units 22:10 Potassium 4.0 (3.6-5.0) mmol/L Adrenal panel 04/26/18 Range/Units 22:10 Potassium 4.0 (3.6-5.0) mmol/L
[2018-04-27] MEDS ORDERED: ULTRAM PO PRN (12:09)
[2018-04-27] MEDS: MAG-OX PO SCH ×2 (12:21→23:48)
--- NOTE | 2018-04-27 17:15 | Progress Note ---
Assessment and Plan Assessment and plan: 32 year old man with history of CAD, CHF, cardiomyopathy with ejection fraction of 20-30% hypertension comes to the ER for evaluation of abdominal pain that started yesterday. Pain is in the left lower abdomen, sharp, very 30 seconds, intensity 8/10, radiating to the back , he cannot identify exacerbating or relieving factor. Admits to nausea, vomiting 32 year old man with history of CAD, CHF, hypertension comes to the ER for evaluation of abdominal pain that started yesterday. Pain is in the left lower abdomen, sharp, very 30 seconds, intensity 8/10, radiating to the back , Diverticulitis with microperforation Hypertension CHF, stabe CAD Plan Continue supportive care CLEAR liquids today Surgical input noted Continue PO levaquin, flagyl anbiotics for 14 days. 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 History Interval history: Patient seen and examined today reports improvement of abdominal pain still present but otherwise stable. Denies any chest pain nausea vomiting reports increased flatus but no bowel movement yet. Hospitalist Physical - Physical exam Narrative exam: VITAL SIGNS: Reviewed. GENERAL: The patient appeared well nourished and normally developed. Morbidly obese. Vital signs as documented. HEAD: No signs of head trauma. EYES: Pupils are equal. Extraocular motions intact. EARS: Hearing grossly intact. MOUTH: Oropharynx is normal. NECK: No adenopathy, no JVD. CHEST: Chest with clear breath sounds bilaterally. No wheezes, rales, or rhonchi. CARDIAC: Regular rate and rhythm. S1 and S2, without murmurs, gallops, or rubs. VASCULAR: No Edema. Peripheral pulses normal and equal in all extremities. ABDOMEN: Soft, generalized tenderness. No sign of distention. No rebound or guarding, and no masses palpated. Bowel Sounds normal. MUSCULOSKELETAL: Good range of motion of all major joints. Extremities without clubbing, cyanosis or edema. NEUROLOGIC EXAM: Alert and oriented x 3. No focal sensory or strength deficits. Speech normal. Follows commands. PSYCHIATRIC: Mood normal. SKIN: No rash or lesions. - Constitutional Vitals: Temp Pulse Resp BP Pulse Ox 98.5 F 65 15 114/73 96 04/27/18 11:45 04/27/18 11:45 04/27/18 11:45 04/27/18 11:45 04/27/18 11:45 Results - Labs CBC & Chem 7: 04/27/18 10:47 04/26/18 22:10 Labs: Laboratory Last Values WBC 5.7 K/mm3 (4.5-11.0) 04/27/18 10:47 RBC 4.22 M/mm3 (3.65-5.03) 04/27/18 10:47 Hgb 11.7 gm/dl (10.1-14.3) 04/27/18 10:47 Hct 36.0 % (30.3-42.9) 04/27/18 10:47 MCV 85 fl (79-97) 04/27/18 10:47 MCH 28 pg (28-32) 04/27/18 10:47 MCHC 33 % (30-34) 04/27/18 10:47 RDW 15.3 % (13.2-15.2) H 04/27/18 10:47 Plt Count 251 K/mm3 (140-440) 04/27/18 10:47 Lymph % (Auto) 19.2 % (13.4-35.0) 04/24/18 20:32 [place] % (Auto) 8.2 % (0.0-7.3) H 04/24/18 20:32 Eos % (Auto) 1.3 % (0.0-4.3) 04/24/18 20:32 Baso % (Auto) 0.5 % (0.0-1.8) 04/24/18 20:32 Lymph # 2.0 K/mm3 (1.2-5.4) 04/24/18 20:32 [place] # 0.9 K/mm3 (0.0-0.8) H 04/24/18 20:32 Eos # 0.1 K/mm3 (0.0-0.4) 04/24/18 20:32 Baso # 0.1 K/mm3 (0.0-0.1) 04/24/18 20:32 Seg Neutrophils % 70.8 % (40.0-70.0) H 04/24/18 20:32 Seg Neutrophils # 7.5 K/mm3 (1.8-7.7) 04/24/18 20:32 Sodium 136 mmol/L (137-145) L 04/24/18 20:32 Potassium 4.0 mmol/L (3.6-5.0) 04/26/18 22:10 Chloride 98.4 mmol/L (98-107) 04/24/18 20:32 Carbon Dioxide 29 mmol/L (22-30) 04/24/18 20:32 Anion Gap 13 mmol/L 04/24/18 20:32 BUN 7 mg/dL (7-17) 04/24/18 20:32 Creatinine 0.6 mg/dL (0.7-1.2) L 04/24/18 20:32 Estimated GFR > 60 ml/min 04/24/18 20:32 BUN/Creatinine Ratio 12 % 04/24/18 20:32 Glucose 92 mg/dL (65-100) 04/24/18 20:32 Calcium 9.4 mg/dL (8.4-10.2) 04/24/18 20:32 Magnesium 1.80 mg/dL (1.7-2.3) 04/26/18 22:10 Total Bilirubin 0.90 mg/dL (0.1-1.2) 04/24/18 20:32 AST 17 units/L (5-40) 04/24/18 20:32 ALT 9 units/L (7-56) 04/24/18 20:32 Alkaline Phosphatase 60 units/L (35-129) 04/24/18 20:32 Total Protein 7.7 g/dL (6.3-8.2) 04/24/18 20:32 Albumin 3.9 g/dL (3.9-5) 04/24/18 20:32 Albumin/Globulin Ratio 1.0 % 04/24/18 20:32 Urine Color Germaine (Yellow) 04/24/18 21:26 Urine Turbidity Clear (Clear) 04/24/18 21:26 Urine pH 5.0 (5.0-7.0) 04/24/18 21:26 Ur Specific [place] 1.023 (1.003-1.030) 04/24/18 21:26 Urine Protein 30 mg/dl mg/dL (Negative) 04/24/18 21:26 Urine Glucose (UA) Neg mg/dL (Negative) 04/24/18 21:26 Urine Ketones Neg mg/dL (Negative) 04/24/18 21:26 Urine Blood Neg (Negative) 04/24/18 21:26 Urine Nitrite Neg (Negative) 04/24/18 21:26 Urine Bilirubin Neg (Negative) 04/24/18 21:26 Urine Urobilinogen 4.0 mg/dL (<2.0) 04/24/18 21:26 Ur Leukocyte Esterase Neg (Negative) 04/24/18 21:26 Urine WBC (Auto) 5.0 /HPF (0.0-6.0) 04/24/18 21:26 Urine RBC (Auto) 6.0 /HPF (0.0-6.0) 04/24/18 21:26 U Epithel Cells (Auto) 25.0 /HPF (0-13.0) H 04/24/18 21:26 Hyaline Casts 3 /LPF 04/24/18 21:26 Urine Mucus 1+ /HPF 04/24/18 21:26 Urine HCG, Qual Negative (Negative) 04/24/18 21:26
[2018-04-28] MEDS: SODIUM CHLORIDE FLUSH SYRINGE 10 ML IV SCH ×2 (00:01→11:14)
[2018-04-28] MEDS: FLAGYL PO SCH ×2 (08:59)
[2018-04-28] MEDS: COREG PO SCH (11:01)
[2018-04-28] MEDS: BABY ASPIRIN PO SCH (11:02)
[2018-04-28] MEDS: LASIX PO SCH (11:02)
[2018-04-28] MEDS: LOVENOX SUB-Q SCH (11:02)
[2018-04-28] MEDS: LEVAQUIN PO SCH (11:02)
[2018-04-28] MEDS: MAG-OX PO SCH (11:02)
--- NOTE | 2018-04-28 12:23 | Progress Note ---
Subjective Date of service: 04/28/18 Objective - Constitutional Vitals: Vital Signs - 12hr 04/28/18 04/28/18 04/28/18 06:25 10:00 11:01 Temperature 97.8 F Pulse Rate 70 70 Respiratory 16 Rate Blood Pressure 100/71 123/76 O2 Sat by Pulse 97 97 Oximetry - Labs CBC & Chem 7: 04/27/18 10:47 04/26/18 22:10
--- NOTE | 2018-04-28 12:39 | Discharge Summary ---
<XANDER NEWMAN - Last Filed: 04/28/18 12:34> Providers - Providers Date of Admission: 04/25/18 03:19 Date of discharge: 04/28/18 Attending physician: XANDER NEWMAN 04/25/18 03:19 Consult to Physician [CONS] Routine Comment: Consulting Provider: DARWIN ROBLES Physician Instructions: Reason For Exam: diverticulitis/microperation 04/25/18 03:23 Consult to Physician [CONS] Routine Comment: Consulting Provider: AYO STEINER Physician Instructions: Reason For Exam: diverticulitis/microperforation 04/26/18 13:44 Consult to Dietitian/Nutrition [CONS] Routine Physician Instructions: Reason For Exam: Reason for Consult: education about diet diverticulitis Primary care physician: SOLUTIONS OPERATOR Hospitalization Reason for admission: Diverticulitits Condition: Fair Hospital course: 32 year old man with history of CAD, CHF, hypertension comes to the ER for evaluation of abdominal pain that started 04/24/18 in the left lower abdomen, sharp, very 30 seconds, intensity 8/10, radiating to the back. no fever. No exacerbating or relieving factor. Admits to nausea, vomiting. CT abdomen and pelvis showed acute diverticulum the descending colon. Pt was placed on NPO and commenced on iv antibiotic with Levaquin and metronidazole. Symptoms improved. and pt was commence on graded oral fluid and advanced to regular diet which she tolerated. She is therefore being discharged today to follow with with PCP in 3-5 days Disposition: DC-01 TO HOME OR SELFCARE Time spent for discharge: 36 min - Discharge Diagnoses (1) Diverticulitis large intestine Status: Acute (2) Acute on chronic systolic CHF (congestive heart failure) Status: Acute (3) Hyperlipidemia Status: Acute Core Measure Documentation - Palliative Care Palliative Care/ Comfort Measures: Not Applicable - Core Measures Any of the following diagnoses?: none Exam - Constitutional Vitals: Temp Pulse Resp BP Pulse Ox 97.8 F 70 16 123/76 97 04/28/18 06:25 04/28/18 11:01 04/28/18 06:25 04/28/18 11:01 04/28/18 10:00 General appearance: Present: no acute distress, well-nourished - EENT Eyes: Present: PERRL - Neck Neck: Present: supple, normal ROM - Respiratory Respiratory effort: normal Respiratory: bilateral: CTA - Cardiovascular Heart Sounds: Present: S1 & S2. Absent: rub, click - Extremities Extremities: pulses symmetrical, No edema Peripheral Pulses: within normal limits - Abdominal General gastrointestinal: Present: soft, non-tender, non-distended, normal bowel sounds Female genitourinary: Present: normal - Integumentary Integumentary: Present: clear, warm, dry - Musculoskeletal Musculoskeletal: gait normal, strength equal bilaterally - Psychiatric Psychiatric: appropriate mood/affect, intact judgment & insight - Neurologic Neurologic: CNII-XII intact, moves all extremities Plan Activity: advance as tolerated Weight Bearing Status: Weight Bear as Tolerated Diet: other (soft x 3 days) Follow up with: NELSON GO MD [Primary Care Provider] - 3-5 Days TAMARA FLOWERS MD [Staff Physician] - 14 Days (2-3 weeks) Prescriptions: Levofloxacin [Levaquin TAB] 750 mg PO Q24HR #20 tablet metroNIDAZOLE [Flagyl TAB] 500 mg PO Q8H #30 tablet <GONZALES HINKLE - Last Filed: 04/28/18 13:06> Providers - Providers Date of Admission: 04/25/18 03:19 Attending physician: XANDER NEWMAN 04/25/18 03:19 Consult to Physician [CONS] Routine Comment: Consulting Provider: DARWIN ROBLES Physician Instructions: Reason For Exam: diverticulitis/microperation 04/25/18 03:23 Consult to Physician [CONS] Routine Comment: Consulting Provider: AYO STEINER Physician Instructions: Reason For Exam: diverticulitis/microperforation 04/26/18 13:44 Consult to Dietitian/Nutrition [CONS] Routine Physician Instructions: Reason For Exam: Reason for Consult: education about diet diverticulitis Primary care physician: SOLUTIONS OPERATOR Exam - Constitutional Vitals: Temp Pulse Resp BP Pulse Ox 97.8 F 70 16 123/76 97 04/28/18 06:25 04/28/18 11:01 04/28/18 06:25 04/28/18 11:01 04/28/18 10:00 Plan Diet: other (low fiber, soft diet x 2-3 weeks, then return to high fiber diet. Drink lots of water)
--- NOTE | 2018-04-28 13:08 | Progress Note ---
Assessment and Plan 32 yo F with uncomplicated diverticuliltis of sigmoid and descending colon Plan: 1. Gi soft diet 2. progressive care nurse consult. Patient educated on diet. 3. abx - levaquin and flagyl x 14 days total 4. prn pain control 5. outpatient GI follow up ok to me home from surgery standpoint. Pt instructed to follow up with surgery office if she wants to discuss elective sigmoidectomy after colonoscopy. Thank you for this consultation, please call with questions or concerns. Subjective Date of service: 04/28/18 Narrative: Pt seen and examined. No complaints. Feels well. No abdominal pain. Tolerated soft diet this am. No n/v. No f/c. Objective Vital Signs - 12hr 04/28/18 04/28/18 04/28/18 06:25 10:00 11:01 Temperature 97.8 F Pulse Rate 70 70 Respiratory 16 Rate Blood Pressure 100/71 123/76 O2 Sat by Pulse 97 97 Oximetry - General physical appearance Narrative Exam: Gen: AAOx3. NAD CV: S1, S2+ Resp: even and unlabored Abd: soft, NT, ND. No r/r/g Ext: no c/c/e - Labs 04/27/18 10:47 04/26/18 22:10
[2018-04-28 13:24] VITALS: BP 102/63
== END 2018-04-28 14:10 | disposition home or self-care (01) | DRG 391 ==
LOC: ED 19:14 → 3A 04-25 03:19
PROVIDERS: ADMIT Internal Medicine; ATTEND Family Medicine
DX: K57.20 Diverticulitis of large intestine with perforation and abscess without bleeding (principal); I50.23 Acute on chronic systolic (congestive) heart failure; Z68.43 Body mass index [BMI] 50.0-59.9, adult; I42.9 Cardiomyopathy, unspecified; I25.10 Atherosclerotic heart disease of native coronary artery without angina pectoris; E66.01 Morbid (severe) obesity due to excess calories; I11.0 Hypertensive heart disease with heart failure; E11.9 Type 2 diabetes mellitus without complications; E78.5 Hyperlipidemia, unspecified; Z95.810 Presence of automatic (implantable) cardiac defibrillator; Z91.013 Allergy to seafood; Z71.3 Dietary counseling and surveillance; Z91.018 Allergy to other foods; Z79.82 Long term (current) use of aspirin; Z79.899 Other long term (current) drug therapy; Z98.84 Bariatric surgery status; Z82.49 Family history of ischemic heart disease and other diseases of the circulatory system; I25.2 Old myocardial infarction; Z87.442 Personal history of urinary calculi
CPT/HCPCS: 36415; 74176; 80053; 81001; 81025; 83735; 84132; 85025; 85027; 87040; 96361; 96365; 96375; J1650; J1940; J1956; J2270; J2405; J3475; J7030

== ENCOUNTER 2019-06-24 14:48 | Inpatient (IN) | payer MEDICAID, MEDICARE ==
--- NOTE | 2019-06-24 15:02 | Event Note ---
ED Screening Note Date of service: 06/24/19 Time: 14:58 ED Screening Note: 33 y o female cc of abdominal distention with bilateral leg swelling states feeling winded and sob hx of gastric sleeve 2 years hx of CHF This initial assessment/diagnostic orders/clinical plan/treatment(s) is/are subject to change based on patients health status, clinical progression and re- assessment by fellow clinical providers in the ED. Further treatment and workup at subsequent clinical providers discretion. Patient/guardian urged not to elope from the ED as their condition may be serious if not clinically assessed and managed. Initial orders include: labs
[2019-06-24 15:25] LABS: Basophils # (Auto) 0.1 K/mm3 (0.0-0.1); Eosinophils # (Auto) 0.1 K/mm3 (0.0-0.4); Eosinophils % (Auto) 1.7 % (0.0-4.3); Hematocrit 44.9 % (30.3-42.9); Hemoglobin 14.3 gm/dl (10.1-14.3); Lymphocytes % (Auto) 23.8 % (13.4-35.0); Mean Corpuscular HGB Conc 32 % (30-34); Mean Corpuscular Volume 87 fl (79-97); Monocytes # (Auto) 0.8 K/mm3 (0.0-0.8); Monocytes % (Auto) 9.9 % (0.0-7.3); Platelet Count 241 K/mm3 (140-440); Red Blood Count 5.17 M/mm3 (3.65-5.03); Red Cell Distribution Width 16.6 % (13.2-15.2)
[2019-06-24 15:35] LABS: INR 1.4 (0.87-1.13)
[2019-06-24 16:15] LABS: Bilirubin,Urine NEG (Negative); Blood,Urine NEG (Negative); Color,Urine Amber (Yellow); Mucus,Urine FEW /HPF
[2019-06-24 16:27] LABS: Bilirubin,Direct 0.8 mg/dL (0-0.2)
[2019-06-24] MEDS ORDERED: LASIX IV ONE (17:42)
[2019-06-24] MEDS ORDERED: TYLENOL PO ONE (17:42)
--- NOTE | 2019-06-24 17:44 | Emergency Department Report ---
<JOHN ORELLANA - Last Filed: 06/24/19 22:59> ED General Adult HPI - General Chief complaint: Abdominal Pain Stated complaint: ABNORMAL SWELLING IN ABD/SOB/COUGH Time Seen by Provider: 06/24/19 14:58 - History of Present Illness Initial comments: Patient Ms. Irizarry is a 33 years old female with history of cardiomyopathy signed out to me by my colleague Dr Green. Patient presented to the ER com plaining of generalized body swelling and shortness of breath. Patient also is complaining of abdominal cramping. Patient found to be in acute CHF exacerbation. Patient received Lasix 60 IV with significant improvement. CT abdomen and pelvis is negative for acute finding. I discussed the patient was Dr. Whittaker, She agreed to admit the patient to make his service for further management. - Related Data Home Medications Medication Instructions Recorded Confirmed Last Taken Carvedilol [Coreg] 25 mg PO BID 06/24/19 06/24/19 06/23/19 Lisinopril [Zestril TAB] 10 mg PO QDAY 06/24/19 06/24/19 06/23/19 Potassium Chloride [K-Dur] 20 meq PO BID 06/24/19 06/24/19 06/23/19 Previous Rx's Medication Instructions Recorded Last Taken Type Aspirin [Aspirin BABY CHEW TAB] 81 mg PO QDAY #30 tab.chew 03/27/16 06/23/19 Rx Furosemide [Lasix TAB] 40 mg PO BID #60 tablet 03/27/16 06/23/19 Rx Allergies Allergy/AdvReac Type Severity Reaction Status Date / Time pineapple Allergy Swelling Verified 12/26/17 16:09 SEAFOOD Allergy Swelling Uncoded 10/19/13 13:51 ED Past Medical Hx - Medications Home Medications: Home Medications Medication Instructions Recorded Confirmed Last Taken Type Aspirin [Aspirin BABY CHEW TAB] 81 mg PO QDAY #30 tab.chew 03/27/16 06/24/19 06/23/19 Rx Furosemide [Lasix TAB] 40 mg PO BID #60 tablet 03/27/16 06/24/19 06/23/19 Rx Carvedilol [Coreg] 25 mg PO BID 06/24/19 06/24/19 06/23/19 History Lisinopril [Zestril TAB] 10 mg PO QDAY 06/24/19 06/24/19 06/23/19 History Potassium Chloride [K-Dur] 20 meq PO BID 06/24/19 06/24/19 06/23/19 History ED Medical Decision Making - Lab Data Result diagrams: 06/24/19 15:10 06/24/19 15:10 ED Disposition Clinical Impression: Nonischemic cardiomyopathy, Acute CHF, Acute on chronic systolic CHF (congestive heart failure), Abdominal pain Disposition: DC-09 OP ADMIT IP TO THIS HOSP Condition: Good <LISE WOLFE - Last Filed: 06/27/19 07:01> ED General Adult HPI - General Source: patient, RN notes reviewed, old records reviewed Mode of arrival: Ambulatory Limitations: No Limitations - History of Present Illness Initial comments: This is a pleasant 33-year-old female. I have evaluated this patient in the past. Her primary care doctor is Dr. Faustin cardiology: Dr Dejuan Granados Past medical history includes catheter proven nonischemic cardiomyopathy, obesity, bariatric surgery, congestive heart failure, history of perforated diverticula, ICD in situ The patient presents to the ER today with a complaint of nontraumatic abdominal cramping and swelling, bilateral lower extremity swelling, unintentional 30 pound weight gain, and lower extremity swelling. Symptoms present for the past few weeks, after she reports having had "the flu." Symptoms constant, worse with physical exertion, decreased with rest. Positive cough. No chest pain. No recent fevers. No urinary symptoms. Denies DVT, pulmonary embolism risk factors. -: Gradual Location: abdomen, left, right, lower extremity Quality: other Consistency: other Improves with: other Worsens with: other Associated Symptoms: shortness of breath ED Review of Systems ROS: Stated complaint: ABNORMAL SWELLING IN ABD/SOB/COUGH Other details as noted in HPI Constitutional: malaise. denies: fever Eyes: denies: eye discharge ENT: congestion Respiratory: cough, shortness of breath Cardiovascular: edema, syncope. denies: chest pain Gastrointestinal: abdominal pain. denies: nausea, vomiting Genitourinary: denies: dysuria Musculoskeletal: arthralgia, myalgia Skin: denies: lesions Neurological: weakness Hematological/Lymphatic: denies: easy bleeding ED Past Medical Hx - Past Medical History Previous Medical History?: Yes Hx Hypertension: Yes Hx Heart Attack/AMI: Yes (09/2014) Hx Congestive Heart Failure: Yes Hx Diabetes: Yes Hx Kidney Stones: Yes Hx Asthma: Yes Hx COPD: No Additional medical history: Morbid obesity. Defibrillator. gastric sleeve, 20 17 - Surgical History Past Surgical History?: Yes Hx Internal Defibrillator: Yes - Social History Smoking Status: Never Smoker Substance Use Type: None ED Physical Exam - General Limitations: No Limitations General appearance: alert, in no apparent distress, obese - Head Head exam: Present: atraumatic, normocephalic - Eye Eye exam: Present: normal appearance, EOMI. Absent: nystagmus - ENT ENT exam: Present: normal exam, normal orophraynx, mucous membranes moist, normal external ear exam - Neck Neck exam: Present: normal inspection, full ROM, other (jugular venous distention is noted bilaterally). Absent: tenderness, meningismus - Respiratory Respiratory exam: Present: decreased breath sounds. Absent: respiratory distress, rales, rhonchi, stridor - Cardiovascular Cardiovascular Exam: Present: regular rate, normal rhythm, normal heart sounds, JVD. Absent: bradycardia, tachycardia, irregular rhythm, systolic murmur, diastolic murmur, rubs, gallop - GI/Abdominal GI/Abdominal exam: Present: soft, distended, other (abdominal wall anasarca is noted). Absent: tenderness, guarding, rebound, rigid, pulsatile mass - Extremities Exam Extremities exam: Present: normal inspection, full ROM, pedal edema, other (2+ pulses noted in the bilateral upper, lower extremities. Compartments soft. No long bony tenderness. The pelvis is stable.). Absent: calf tenderness - Back Exam Back exam: Present: normal inspection, full ROM. Absent: tenderness, CVA tenderness (R), CVA tenderness (L), paraspinal tenderness, vertebral tenderness - Neurological Exam Neurological exam: Present: alert, other (Extraocular movements intact. Tongue midline. No facial droop. Facial sensation intact to light touch in the V1, V2, V3 distribution bilaterally. 5 and 5 strength in 4 extremities.. Sensation is intact to light touch in 4 extremities.). Absent: motor sensory deficit - Psychiatric Psychiatric exam: Present: anxious - Skin Skin exam: Present: warm, dry, intact, normal color. Absent: rash ED Course Vital Signs 06/24/19 06/24/19 06/24/19 14:58 16:20 16:34 Temperature 98.1 F Pulse Rate 93 H 85 Respiratory 20 20 Rate Blood Pressure 129/66 Blood Pressure 94/78 122/81 [Left] O2 Sat by Pulse 99 100 Oximetry 06/24/19 06/24/19 17:38 23:41 Temperature Pulse Rate 88 75 Respiratory 16 16 Rate Blood Pressure Blood Pressure 116/76 122/87 [Left] O2 Sat by Pulse 98 98 Oximetry - Reevaluation(s) Reevaluation #1: 06/24/19 18:55 Differential diagnosis, including but not limited to: Congestive heart failure, worsening cardiac myopathy, abdominal wall anasarca, lower extremity edema, fluid overload Assessment and plan: 33-year-old female, endorses no pulmonary embolism or DVT risk factors, low risk by well's criteria, likely presenting with CHF e xacerbation, likely secondary to recent presumed viral infection a few weeks ago. The patient is afebrile with reassuring vital signs. She is not tachycardic, or significant only hypoxic. A d-dimer was sent prior to my evaluation, and is found to be elevated, I suspect that this is a false positi ve. Patient manifesting physical exam findings of congestive heart failure, including jugular venous distention, abdominal wall distention, and lower extremity edema. We will treat her pain with acetaminophen, and initiate high- dose Lasix therapy. Nuclear medicine studies ordered to risk stratify for pulmonary embolus, although, suspect patient does not have a pulmonary embolus. CT scan of the abdomen and pelvis will be obtained to exclude recurrent microperforation, although, I do not suspect that the perforation is present. Advised patient that we would recommend admission to the hospital for diuresis, and medication optimization was initial diagnostic Results. The patient is amenable to this plan of care. Discussed the case with her private language instructor, Dr. Dejuan Granados who is amenable to this plan of care and agrees to see the patient in consultation. Reevaluation #2: 06/24/19 20:[address] Alex Orellana to follow up on ct abd/pelvis n/m low probability would admit after ct complete ED Medical Decision Making - Lab Data Result diagrams: 06/25/19 05:58 06/26/19 07:07 Vital Signs 06/24/19 06/24/19 06/24/19 14:58 16:20 16:34 Temperature 98.1 F Pulse Rate 93 H 85 Respiratory 20 20 Rate Blood Pressure 129/66 Blood Pressure 94/78 122/81 [Left] O2 Sat by Pulse 99 100 Oximetry 06/24/19 17:38 Temperature Pulse Rate 88 Respiratory 16 Rate Blood Pressure Blood Pressure 116/76 [Left] O2 Sat by Pulse 98 Oximetry Lab Results 06/24/19 06/24/19 06/24/19 Range/Units 15:10 15:10 15:10 WBC 8.3 (4.5-11.0) K/mm3 RBC 5.17 H (3.65-5.03) M/mm3 Hgb 14.3 (10.1-14.3) gm/dl Hct 44.9 H (30.3-42.9) % MCV 87 (79-97) fl MCH 28 (28-32) pg MCHC 32 (30-34) % RDW 16.6 H (13.2-15.2) % Plt Count 241 (140-440) K/mm3 Lymph % (Auto) 23.8 (13.4-35.0) % Dougherty % (Auto) 9.9 H (0.0-7.3) % Eos % (Auto) 1.7 (0.0-4.3) % Baso % (Auto) 1.0 (0.0-1.8) % Lymph # 2.0 (1.2-5.4) K/mm3 Dougherty # 0.8 (0.0-0.8) K/mm3 Eos # 0.1 (0.0-0.4) K/mm3 Baso # 0.1 (0.0-0.1) K/mm3 Seg Neutrophils % 63.6 (40.0-70.0) % Seg Neutrophils # 5.3 (1.8-7.7) K/mm3 PT 16.8 H (12.2-14.9) Sec. INR 1.40 H (0.87-1.13) D-Dimer 565.67 H (0-234) ng/mlDDU Sodium (137-145) mmol/L Potassium (3.6-5.0) mmol/L Chloride (98-107) mmol/L Carbon Dioxide (22-30) mmol/L Anion Gap mmol/L BUN (7-17) mg/dL Creatinine (0.7-1.2) mg/dL Estimated GFR ml/min BUN/Creatinine Ratio % Glucose (65-100) mg/dL Calcium (8.4-10.2) mg/dL Magnesium (1.7-2.3) mg/dL Total Bilirubin 1.80 H (0.1-1.2) mg/dL Direct Bilirubin 0.8 H (0-0.2) mg/dL Indirect Bilirubin 1.0 mg/dL AST 21 (5-40) units/L ALT 10 (7-56) units/L Alkaline Phosphatase 66 (35-129) units/L Total Creatine Kinase (30-135) units/L NT-Pro-B Natriuret Pep (0-450) pg/mL Total Protein 8.1 (6.3-8.2) g/dL Albumin 4.0 (3.9-5) g/dL Albumin/Globulin Ratio 1.0 % Amylase 39 (27-131) units/L HCG, Qual (Negative) Urine Color (Yellow) Urine Turbidity (Clear) Urine pH (5.0-7.0) Ur Specific [place] (1.003-1.030) Urine Protein (Negative) mg/dL Urine Glucose (UA) (Negative) mg/dL Urine Ketones (Negative) mg/dL Urine Blood (Negative) Urine Nitrite (Negative) Urine Bilirubin (Negative) Urine Urobilinogen (<2.0) mg/dL Ur Leukocyte Esterase (Negative) Urine WBC (Auto) (0.0-6.0) /HPF Urine RBC (Auto) (0.0-6.0) /HPF U Epithel Cells (Auto) (0-13.0) /HPF Urine Mucus /HPF 06/24/19 06/24/19 06/24/19 Range/Units 15:10 15:10 Unknown WBC (4.5-11.0) K/mm3 RBC (3.65-5.03) M/mm3 Hgb (10.1-14.3) gm/dl Hct (30.3-42.9) % MCV (79-97) fl MCH (28-32) pg MCHC (30-34) % RDW (13.2-15.2) % Plt Count (140-440) K/mm3 Lymph % (Auto) (13.4-35.0) % Dougherty % (Auto) (0.0-7.3) % Eos % (Auto) (0.0-4.3) % Baso % (Auto) (0.0-1.8) % Lymph # (1.2-5.4) K/mm3 Dougherty # (0.0-0.8) K/mm3 Eos # (0.0-0.4) K/mm3 Baso # (0.0-0.1) K/mm3 Seg Neutrophils % (40.0-70.0) % Seg Neutrophils # (1.8-7.7) K/mm3 PT (12.2-14.9) Sec. INR (0.87-1.13) D-Dimer (0-234) ng/mlDDU Sodium 138 (137-145) mmol/L Potassium 4.6 (3.6-5.0) mmol/L Chloride 99.2 (98-107) mmol/L Carbon Dioxide 21 L (22-30) mmol/L Anion Gap 22 mmol/L BUN 10 (7-17) mg/dL Creatinine 0.6 L (0.7-1.2) mg/dL Estimated GFR > 60 ml/min BUN/Creatinine Ratio 17 % Glucose 87 (65-100) mg/dL Calcium 10.0 (8.4-10.2) mg/dL Magnesium 2.00 (1.7-2.3) mg/dL Total Bilirubin (0.1-1.2) mg/dL Direct Bilirubin (0-0.2) mg/dL Indirect Bilirubin mg/dL AST (5-40) units/L ALT (7-56) units/L Alkaline Phosphatase (35-129) units/L Total Creatine Kinase 70 (30-135) units/L NT-Pro-B Natriuret Pep 1528 H (0-450) pg/mL Total Protein (6.3-8.2) g/dL Albumin (3.9-5) g/dL Albumin/Globulin Ratio % Amylase (27-131) units/L HCG, Qual Negative (Negative) Urine Color Germaine (Yellow) Urine Turbidity Clear (Clear) Urine pH 5.0 (5.0-7.0) Ur Specific [place] 1.024 (1.003-1.030) Urine Protein 100 mg/dl (Negative) mg/dL Urine Glucose (UA) Neg (Negative) mg/dL Urine Ketones Neg (Negative) mg/dL Urine Blood Neg (Negative) Urine Nitrite Neg (Negative) Urine Bilirubin Neg (Negative) Urine Urobilinogen 2.0 (<2.0) mg/dL Ur Leukocyte Esterase Neg (Negative) Urine WBC (Auto) 2.0 (0.0-6.0) /HPF Urine RBC (Auto) 5.0 (0.0-6.0) /HPF U Epithel Cells (Auto) 10.0 (0-13.0) /HPF Urine Mucus Few /HPF - EKG Data -: EKG Interpreted by Ne EKG shows normal: sinus rhythm Rate: normal - EKG Data 06/24/19 18:58 This is a sinus rhythm, 85 bpm, normal axis, QTC prolonged, low voltage, poor R- wave progression, essentially unchanged from prior EKG from June 2015, borderline atrial enlargement, the EKG is abnormal, the EKG is not consistent with ST elevation myocardial infarction. - Radiology Data Radiology results: report reviewed, image reviewed Referring Physician: LISE WOLFE Patient Name: STAN IRIZARRY Date of : 1985 Sex: Female Report Date: 2019-06-24 Report Status: Finalized [facility] [address] [place] [address] XRay Report Signed Patient: STAN IRIZARRY MR#: [id number] : 1985 Acct:[id number] Age/Sex: 33 / F ADM Date: 06/24/19 Loc: ED [facility] Dr: Ordering Physician: LISE WOLFE MD Date of Service: 06/24/19 Procedure(s): XR chest 1V ap Accession Number(s): [id number] cc: LISE WOLFE MD Fluoro Time In Minutes: CHEST 1 VIEW INDICATION / CLINICAL INFORMATION: chf. COMPARISON: 03/26/2016 FINDINGS: SUPPORT DEVICES: None. HEART / MEDIASTINUM: Cardiac silhouette is moderately enlarged. LUNGS / PLEURA: There is some mild interstitial pulmonary edema. Right lung is clear. Left lung base is obscured by the enlarged cardiac silhouette No pneumothorax. ADDITIONAL FINDINGS: Cardiac pacemaker device is stable in position. IMPRESSION: 1. Moderately enlarged cardiac silhouette is stable compared with prior studies. Very mild interstitial pulmonary edema is present. Signer Name: Josephine Luong MD Signed: 06/24/2019 6:22 PM Workstation Name: [id number] Transcribed By: Dictated By: Josephine Luong MD Electronically Authenticated By: Josephine Luong MD Signed Date/Time: 06/24/19 1822 nm study low probability CT scan of the abdomen and pelvis shows body wall edema Critical Care Time: Yes Critical care time in (mins) excluding proc time.: 35 Critical care attestation.: If time is entered above; I have spent that time in minutes in the direct care of this critically ill patient, excluding procedure time. ED Disposition Is pt being admited?: Yes
[2019-06-24 18:20] LABS: BUN/Creatinine Ratio 17; Blood Urea Nitrogen 10 mg/dL (7-17); Hemolysis Index 38
--- NOTE | 2019-06-24 18:26 | XRay Report ---
CHEST 1 VIEW INDICATION / CLINICAL INFORMATION: chf. COMPARISON: 03/26/2016 FINDINGS: SUPPORT DEVICES: None. HEART / MEDIASTINUM: Cardiac silhouette is moderately enlarged. LUNGS / PLEURA: There is some mild interstitial pulmonary edema. Right lung is clear. Left lung base is obscured by the enlarged cardiac silhouette No pneumothorax. ADDITIONAL FINDINGS: Cardiac pacemaker device is stable in position. IMPRESSION: 1. Moderately enlarged cardiac silhouette is stable compared with prior studies. Very mild interstiti al pulmonary edema is present. Signer Name: Josephine Luong MD Signed: 06/24/2019 6:22 PM Workstation Name: [id number]
--- NOTE | 2019-06-24 19:44 | Nuclear Medicine Report ---
NM lung scan perf/vent 7:39 PM INDICATION / CLINICAL INFORMATION: Shortness of breath and elevated d-dimer. Increasing shortness of breath over the last few days. Rece nt flight to [place]. TECHNIQUE: Dose / Agent / Route: 19 mCi xenon 133 gas was inhaled and 5.2 mCi technetium 99m-MAA was administere d intravenously. COMPARISON: Portable chest x-ray 6:14 PM FINDINGS: There is minimal air trapping in the left upper lung. There is mild inhomogeneity of perfusion bilate rally. No segmental or larger area of ventilation-perfusion mismatch is seen. The accompanying chest radiograph reveals no focal abnormality. IMPRESSION: Low probability for acute PTE. Signer Name: Evan Calabrese MD Signed: 06/24/2019 7:40 PM Workstation Name: [id number]
--- NOTE | 2019-06-24 22:48 | Cat Scan Report ---
CT abdomen pelvis wo con INDICATION: abd pain swelling chf volume overloasd. TECHNIQUE: All CT scans at this location are performed using the following dose modulation technique: Automated exposure control. CONTRAST: None. COMPARISON: 04/25/2018. CT abdomen: Cardiomegaly is moderate. There is atelectasis/scarring adjacent to the left heart border . Evaluation of the parenchymal organs demonstrates no suspicious lesion. Negative for abdominal mass, fluid collection or inflammation. Body wall edema is noted. CT PELVIS: A small/moderate amount of pelvic free fluid is noted. Negative for mass or localized flui d collection. Evaluation of the deep pelvis is limited by body habitus. IMPRESSION: 1. Cardiomegaly. 2. Body wall edema. 3. Pelvic fluid. Signer Name: Morgan Tavarez MD Signed: 06/24/2019 10:43 PM Workstation Name: [id number]
[2019-06-24] MEDS ORDERED: NITROSTAT SL PRN (23:15)
[2019-06-24] MEDS ORDERED: SODIUM CHLORIDE FLUSH SYRINGE 10 ML IV PRN (23:21)
[2019-06-24] MEDS ORDERED: ZOFRAN IV PRN (23:21)
[2019-06-24] MEDS ORDERED: TYLENOL PO PRN (23:21)
[2019-06-24] MEDS ORDERED: D50W (25GM) Syringe IV PRN (23:48)
[2019-06-24] MEDS ORDERED: PROVENTIL IH PRN (23:49)
--- NOTE | 2019-06-24 23:52 | History and Physical Report ---
History of Present Illness Date of examination: 06/24/19 Date of admission: 06/24/2019 Chief complaint: Abdominal cramping and swelling, and Bilateral lower extremity swelling History of present illness: 33-year-old -[place] female with history of CHF, hypertension, diabetes who presents to [facility] ED with complaint of 30 pound weight gain and BLE pitting edema for one week and abdominal edema for the past 3 days. Pt states that she recently had the flu. After getting over the flu, she noticed that her legs started swelling up. Over the course of a week the swelling moved up her leg and to the abdomen. Pt states that she takes PO Lasix and is compliant. Dr. Granados is her juice mixer. Denies: Cough, fever, headache, dyspnea, or hemoptysis Past History Past Medical History: acute [place] (2013), diabetes, heart failure, hypertension, sarcoidosis (kidney stones, asthma) Past Surgical History: Other (Internal Defibrillator) Social history: denies: smoking Family history: no significant family history Medications and Allergies Allergies Allergy/AdvReac Type Severity Reaction Status Date / Time pineapple Allergy Swelling Verified 12/26/17 16:09 SEAFOOD Allergy Swelling Uncoded 10/19/13 13:51 Home Medications Medication Instructions Recorded Confirmed Last Taken Type Aspirin [Aspirin BABY CHEW TAB] 81 mg PO QDAY #30 tab.chew 03/27/16 06/24/19 0 06/23/19 Rx Furosemide [Lasix TAB] 40 mg PO BID #60 tablet 03/27/16 06/24/19 06/23/19 Rx Carvedilol [Coreg] 25 mg PO BID 06/24/19 06/24/19 06/23/19 History Lisinopril [Zestril TAB] 10 mg PO QDAY 06/24/19 06/24/19 06/23/19 History Potassium Chloride [K-Dur] 20 meq PO BID 06/24/19 06/24/19 06/23/19 History Active Meds: Active Medications Acetaminophen (Tylenol) 650 mg PO Q4H PRN PRN Reason: Pain MILD(1-3)/Fever >100.5/CRUZ Aspirin (Baby Aspirin) 81 mg PO QDAY NALINI Carvedilol (Coreg) 25 mg PO BID NALINI Enoxaparin Sodium (Lovenox) 40 mg SUB-Q QDAY NLAINI Furosemide (Lasix) 40 mg IV BID@0600,1800 NALINI Lisinopril (Zestril) 10 mg PO QDAY NALINI Nitroglycerin (Nitrostat) 0.4 mg SL .Q5MIN PRN PRN Reason: Chest Pain Ondansetron HCl (Zofran) 4 mg IV Q8H PRN PRN Reason: Nausea And Vomiting Potassium Chloride (K-Dur) 20 meq PO BID NALINI Sodium Chloride (Sodium Chloride Flush Syringe 10 Ml) 10 ml IV BID NALINI Sodium Chloride (Sodium Chloride Flush Syringe 10 Ml) 10 ml IV PRN PRN PRN Reason: LINE FLUSH Review of Systems All systems: negative Cardiovascular: edema (adbominal edema), leg edema Gastrointestinal: abdominal pain (tenderness due to abdominal edema) Exam - Physical Exam Narrative exam: Physical exam General appearance: Present: Mild discomfort, alert and oriented 3, middle-age adult -[place] female - EENT Eyes: Present: PERRL, EOM intact ENT: hearing intact, normal dentition - Neck Neck: Present: supple, normal ROM - Respiratory Respiratory effort: Non-labored Respiratory: Faint bibasilar crackles - Cardiovascular Heart rate: 85 (bpm) Rhythm: SR, nonspecific T-wave abnormality Heart Sounds: Present: S1 & S2. Absent: rub, click - Extremities Extremities: no ischemia, pulses intact, abnormal (BLE 2+ pitting edema) - Peripheral Assessment Peripheral Pulses: within normal limits - Abdominal General gastrointestinal: soft, mild diffuse tenderness r/t abdominal edema, normal bowel sounds, - Integumentary Integumentary: Present: warm, dry - Musculoskeletal Musculoskeletal: able to move all extremities -Neurological Neurological: CN II-XII grossly intact - Psychiatric Psychiatric: cooperative - Constitutional Vitals: Temp Pulse Resp BP Pulse Ox 98.1 F 75 16 122/87 98 06/24/19 14:58 06/24/19 23:41 06/24/19 23:41 06/24/19 23:41 06/24/19 23:41 Results - Labs CBC & Chem 7: 06/24/19 15:10 06/24/19 15:10 Labs: Laboratory Last Values WBC 8.3 K/mm3 (4.5-11.0) 06/24/19 15:10 RBC 5.17 M/mm3 (3.65-5.03) H 06/24/19 15:10 Hgb 14.3 gm/dl (10.1-14.3) 06/24/19 15:10 Hct 44.9 % (30.3-42.9) H 06/24/19 15:10 MCV 87 fl (79-97) 06/24/19 15:10 MCH 28 pg (28-32) 06/24/19 15:10 MCHC 32 % (30-34) 06/24/19 15:10 RDW 16.6 % (13.2-15.2) H 06/24/19 15:10 Plt Count 241 K/mm3 (140-440) 06/24/19 15:10 Lymph % (Auto) 23.8 % (13.4-35.0) 06/24/19 15:10 [place] % (Auto) 9.9 % (0.0-7.3) H 06/24/19 15:10 Eos % (Auto) 1.7 % (0.0-4.3) 06/24/19 15:10 Baso % (Auto) 1.0 % (0.0-1.8) 06/24/19 15:10 Lymph # 2.0 K/mm3 (1.2-5.4) 06/24/19 15:10 [place] # 0.8 K/mm3 (0.0-0.8) 06/24/19 15:10 Eos # 0.1 K/mm3 (0.0-0.4) 06/24/19 15:10 Baso # 0.1 K/mm3 (0.0-0.1) 06/24/19 15:10 Seg Neutrophils % 63.6 % (40.0-70.0) 06/24/19 15:10 Seg Neutrophils # 5.3 K/mm3 (1.8-7.7) 06/24/19 15:10 PT 16.8 Sec. (12.2-14.9) H 06/24/19 15:10 INR 1.40 (0.87-1.13) H 06/24/19 15:10 565.67 ng/mlDDU (0-234) H 06/24/19 15:10 Sodium 138 mmol/L (137-145) 06/24/19 15:10 Potassium 4.6 mmol/L (3.6-5.0) 06/24/19 15:10 Chloride 99.2 mmol/L (98-107) 06/24/19 15:10 Carbon Dioxide 21 mmol/L (22-30) L 06/24/19 15:10 22 mmol/L 06/24/19 15:10 BUN 10 mg/dL (7-17) 06/24/19 15:10 0.6 mg/dL (0.7-1.2) L 06/24/19 15:10 Estimated GFR > 60 ml/min 06/24/19 15:10 17 % 06/24/19 15:10 Glucose 87 mg/dL (65-100) 06/24/19 15:10 Calcium 10.0 mg/dL (8.4-10.2) 06/24/19 15:10 Magnesium 2.00 mg/dL (1.7-2.3) 06/24/19 15:10 1.80 mg/dL (0.1-1.2) H 06/24/19 15:10 0.8 mg/dL (0-0.2) H 06/24/19 15:10 1.0 mg/dL 06/24/19 15:10 AST 21 units/L (5-40) 06/24/19 15:10 ALT 10 units/L (7-56) 06/24/19 15:10 66 units/L (35-129) 06/24/19 15:10 70 units/L (30-135) 06/24/19 15:10 NT-Pro-B Natriuret Pep 1528 pg/mL (0-450) H 06/24/19 15:10 8.1 g/dL (6.3-8.2) 06/24/19 15:10 4.0 g/dL (3.9-5) 06/24/19 15:10 1.0 % 06/24/19 15:10 Amylase 39 units/L (27-131) 06/24/19 15:10 HCG, Qual Negative (Negative) 06/24/19 15:10 Germaine (Yellow) 06/24/19 Unknown Clear (Clear) 06/24/19 Unknown 5.0 (5.0-7.0) 06/24/19 Unknown Ur Specific [place] 1.024 (1.003-1.030) 06/24/19 Unknown 100 mg/dl mg/dL (Negative) 06/24/19 Unknown Neg mg/dL (Negative) 06/24/19 Unknown Neg mg/dL (Negative) 06/24/19 Unknown Neg (Negative) 06/24/19 Unknown Neg (Negative) 06/24/19 Unknown Neg (Negative) 06/24/19 Unknown 2.0 mg/dL (<2.0) 06/24/19 Unknown Ur Leukocyte Esterase Neg (Negative) 06/24/19 Unknown 2.0 /HPF (0.0-6.0) 06/24/19 Unknown 5.0 /HPF (0.0-6.0) 06/24/19 Unknown U Epithel Cells (Auto) 10.0 /HPF (0-13.0) 06/24/19 Unknown Few /HPF 06/24/19 Unknown - Imaging and Cardiology Imaging and Cardiology: V/Q Scan: FINDINGS: There is minimal air trapping in the left upper lung. There is mild inhomogeneity of perfusion bilaterally. No segmental or larger area of ventilation-perfusion mismatch is seen. The accompanying chest radiograph reveals no focal abnormality. IMPRESSION: Low probability for acute PTE. CTA Neck: FINDINGS: Patient related artifacts due to acquisition of source images obscuring the details. Aortic arch: No significant abnormality. Cervical vertebral arteries: No significant abnormality. Common carotid arteries: No significant abnormality. Carotid bifurcations: Normal Cervical internal carotid arteries: No significant abnormality. Additional findings: None. IMPRESSION: 1. No significant abnormality. CT Head: FINDINGS: Parenchyma: No acute intracranial hemorrhage or parenchymal abnormality. No abnormal density. No mass or mass effect. Ventricles: Ventricles are normal in size and appear symmetric. Soft tissues: Soft tissues including the orbits appear normal. Bones: No acute osseous abnormality. Sinuses: Mild mucoperiosteal thickening of the bilateral ethmoid sinuses. No air-fluid levels. The rest of the sinuses are clear. IMPRESSION: Mild ethmoid sinusitis and otherwise normal. CTA Head: Negative CXR: LUNGS / PLEURA: There is some mild interstitial pulmonary edema. Right lung is clear. Left lung base is obscured by the enlarged cardiac silhouette No pneumothorax. ADDITIONAL FINDINGS: Cardiac pacemaker device is stable in p osition. IMPRESSION: 1. Moderately enlarged cardiac silhouette is stable compared with prior studies. Very mild interstitial pulmonary edema is present. CT abdomen: Cardiomegaly is moderate. There is atelectasis/scarring adjacent to the left heart border. Evaluation of the parenchymal organs demonstrates no suspicious lesion. Negative for abdominal mass, fluid collection or inflammation. Body wall edema is noted. CT PELVIS: A small/moderate amount of pelvic free fluid is noted. Negative for mass or localized fluid collection. Evaluation of the deep pelvis is limited by body habitus. IMPRESSION: 1. Cardiomegaly. 2. Body wall edema. 3. Pelvic fluid. Assessment and Plan Assessment and plan: 33-year-old -[place] female with history of CHF, hypertension, diabetes who presents to [facility] ED with complaints of 30 pound weight gain and BLE pitting edema for one week and abdominal edema for the past 3 days. Exacerbation CHF -CXR shows Moderately enlarged cardiac silhouette is stable compared with prior studies; Very mild interstitial pulmonary edema is present -BNP elevated 1528 -Continue IV diuretics -Cardiology Consulted Acute Abdominal Pain -Likely due to fluid overload/ CHF exacerbation -CT Abdomen showed Cardiomegaly; Body wall edema; Pelvic fluid -Continue supportive care Elevated D-Dimer -D-dimer 565.67 -V/Q negative for PE Hypertension -Continue to monitor BP -Resume home antihypertensive meds to optimize BP -IV antihypertensive when necessary DM 2 -POC BG monitoring -SSI coverage -HbgA1C pending Asthma -Albuterol prn Hx of [place] (2014) Obesity -BMI 54.8 -May benefit from lifestyle and diet modifications -May benefit from outpatient weight management program DVT PPX -On Lovenox Advance Directives: No VTE prophylaxis?: Chemical Plan of care discussed with patient/family: Yes
[2019-06-25] MEDS: LASIX IV SCH ×2 (06:03→18:09)
[2019-06-25 06:25] LABS: Basophils # (Auto) 0.1 K/mm3 (0.0-0.1); Basophils % (Auto) 0.9 % (0.0-1.8); Eosinophils # (Auto) 0.1 K/mm3 (0.0-0.4); Eosinophils % (Auto) 1.6 % (0.0-4.3); Hematocrit 40.2 % (30.3-42.9); Hemoglobin 13.2 gm/dl (10.1-14.3); Lymphocytes # (Auto) 2.5 K/mm3 (1.2-5.4); Lymphocytes % (Auto) 38.2 % (13.4-35.0); Mean Corpuscular HGB Conc 33 % (30-34); Mean Corpuscular Volume 86 fl (79-97); Monocytes # (Auto) 0.7 K/mm3 (0.0-0.8); Monocytes % (Auto) 10.5 % (0.0-7.3); Platelet Count 193 K/mm3 (140-440); Red Cell Distribution Width 16.4 % (13.2-15.2)
[2019-06-25 06:49] LABS: BUN/Creatinine Ratio 13; Blood Urea Nitrogen 9 mg/dL (7-17); Calcium 9.3 mg/dL (8.4-10.2); Hemolysis Index 9
[2019-06-25] MEDS: HumaLOG SUB-Q SCH ×4 (08:27→21:43)
[2019-06-25] MEDS: LOVENOX SUB-Q SCH (09:45)
[2019-06-25] MEDS: BABY ASPIRIN PO SCH (09:45)
[2019-06-25] MEDS: K-DUR PO SCH ×2 (09:45→21:42)
[2019-06-25] MEDS: COREG PO SCH ×2 (09:45→21:44)
[2019-06-25] MEDS: SODIUM CHLORIDE FLUSH SYRINGE 10 ML IV SCH ×2 (09:46→21:43)
[2019-06-25] MEDS ORDERED: ZESTRIL PO SCH (10:00)
--- NOTE | 2019-06-25 10:22 | Consultation ---
History of Present Illness Consult date: 06/25/19 Requesting physician: ISABEL PRATT Consult reason: congestive heart failure History of present illness: The patient is followed by Dr. Cronin in our office. She has a history of chronic HFrEF and severe nonischemic cardiomyopathy. She presented to the ER with 1 week history of progressive increased abdominal girth and leg edema as well as shortness of breath. She has no chest pain. Her last echocardiogram of March 2017 revealed with an ejection fraction of 2025 percent. Past History Past Medical History: diabetes, heart failure (chronic HFrEF), hypertension, hy perlipidemia Past Surgical History: Other (AICD implantation and gastric sling procedure) Social history: denies: smoking, alcohol abuse Family history: no significant family history Medications and Allergies Allergies Allergy/AdvReac Type Severity Reaction Status Date / Time pineapple Allergy Swelling Verified 12/26/17 16:09 SEAFOOD Allergy Swelling Uncoded 10/19/13 13:51 Home Medications Medication Instructions Recorded Confirmed Last Taken Type Aspirin [Aspirin BABY CHEW TAB] 81 mg PO QDAY #30 tab.chew 03/27/16 06/24/19 06/23/19 Rx Furosemide [Lasix TAB] 40 mg PO BID #60 tablet 03/27/16 06/24/19 06/23/19 Rx Carvedilol [Coreg] 25 mg PO BID 06/24/19 06/24/19 06/23/19 History Lisinopril [Zestril TAB] 10 mg PO QDAY 06/24/19 06/24/19 06/23/19 History Potassium Chloride [K-Dur] 20 meq PO BID 06/24/19 06/24/19 06/23/19 History Active Meds: Active Medications Acetaminophen (Tylenol) 650 mg PO Q4H PRN PRN Reason: Pain MILD(1-3)/Fever >100.5/CRUZ Albuterol (Proventil) 2.5 mg IH Q4HRT PRN PRN Reason: Shortness Of Breath Aspirin (Baby Aspirin) 81 mg PO QDAY [facility] Last Admin: 06/25/19 09:45 Dose: 81 mg Documented by: Carvedilol (Coreg) 25 mg PO BID [facility] Last Admin: 06/25/19 09:45 Dose: 25 mg Documented by: Dextrose (D50w (25gm) Syringe) 50 ml IV PRN PRN PRN Reason: Hypoglycemia Enoxaparin Sodium (Lovenox) 40 mg SUB-Q QDAY [facility] Last Admin: 06/25/19 09:45 Dose: 40 mg Documented by: Furosemide (Lasix) 40 mg IV BID@0600,1800 [facility] Last Admin: 06/25/19 06:03 Dose: 40 mg Documented by: Insulin Human Lispro (Humalog) 0 unit SUB-Q ACHS [facility]; Protocol Last Admin: 06/25/19 08:27 Dose: Not Given Documented by: Lisinopril (Zestril) 10 mg PO QDAY [facility] Last Admin: 06/25/19 09:45 Dose: 10 mg Documented by: Nitroglycerin (Nitrostat) 0.4 mg SL .Q5MIN PRN PRN Reason: Chest Pain Ondansetron HCl (Zofran) 4 mg IV Q8H PRN PRN Reason: Nausea And Vomiting Potassium Chloride (K-Dur) 20 meq PO BID [facility] Last Admin: 06/25/19 09:45 Dose: 20 meq Documented by: Sodium Chloride (Sodium Chloride Flush Syringe 10 Ml) 10 ml IV BID [facility] Last Admin: 06/25/19 09:46 Dose: 10 ml Documented by: Sodium Chloride (Sodium Chloride Flush Syringe 10 Ml) 10 ml IV PRN PRN PRN Reason: LINE FLUSH Review of Systems Constitutional: no fever, no chills Ears, nose, mouth and throat: no ear pain, no ear discharge, no sore throat Cardiovascular: orthopnea, edema, shortness of breath, no chest pain, no palpitations, no lightheadedness Respiratory: shortness of breath, dyspnea on exertion, no cough, no hemoptysis Gastrointestinal: no abdominal pain, no nausea, no vomiting, no diarrhea, no constipation Genitourinary Female: no dysuria, no urinary frequency Rectal: no pain, no bleeding Musculoskeletal: no neck stiffness, no neck pain, no myalgias Integumentary: no rash, no pruritis Neurological: no weakness, no parathesias, no headaches Endocrine: no cold intolerance, no heat intolerance Hematologic/Lymphatic: no easy bruising, no easy bleeding Allergic/Immunologic: no urticaria, no wheezing Physical Examination Vital Signs Last Vital Signs Temp 98.1 F 06/25/19 08:47 Pulse 76 06/25/19 09:45 Resp 16 08/28/19 08:47 BP 115/79 06/25/19 09:45 Pulse Ox 91 06/25/19 08:47 General appearance: no acute distress HEENT: Positive: EOMI, Normocephaly, Mucus Membranes Moist Neck: Positive: neck supple, trachea midline, JVD/HJR (elevated) Cardiac: Positive: Reg Rate and Rhythm, S1/S2 Lungs: Positive: clear to auscultation Neuro: Positive: Grossly Intact Abdomen: Positive: Soft, Active Bowel Sounds. Negative: Tender Skin: Positive: Clear. Negative: Rash Musculoskeletal: Normal Range of Motion Extremities: Present: normal, +2 Edema (pitting bilateral leg edema) Results 06/25/19 05:58 06/25/19 05:58 Cardiac Enzymes 06/24/19 Range/Units 15:10 AST 21 (5-40) units/L Coagulation 06/24/19 Range/Units 15:10 PT 16.8 H (12.2-14.9) Sec. INR 1.40 H (0.87-1.13) CBC 06/24/19 06/25/19 Range/Units 15:10 05:58 WBC 8.3 6.6 (4.5-11.0) K/mm3 RBC 5.17 H 4.70 (3.65-5.03) M/mm3 Hgb 14.3 13.2 (10.1-14.3) gm/dl Hct 44.9 H 40.2 (30.3-42.9) % Plt Count 241 193 (140-440) K/mm3 Lymph # 2.0 2.5 (1.2-5.4) K/mm3 [place] # 0.8 0.7 (0.0-0.8) K/mm3 Eos # 0.1 0.1 (0.0-0.4) K/mm3 Baso # 0.1 0.1 (0.0-0.1) K/mm3 Comprehensive Metabolic Panel 06/24/19 06/24/19 06/25/19 Range/Units 15:10 15:10 05:58 Sodium 138 139 (137-145) mmol/L Potassium 4.6 4.0 (3.6-5.0) mmol/L Chloride 99.2 99.5 (98-107) mmol/L Carbon Dioxide 21 L 26 (22-30) mmol/L BUN 10 9 (7-17) mg/dL Creatinine 0.6 L 0.7 (0.7-1.2) mg/dL Glucose 87 81 (65-100) mg/dL Calcium 10.0 9.3 (8.4-10.2) mg/dL Direct Bilirubin 0.8 H (0-0.2) mg/dL Indirect Bilirubin 1.0 mg/dL AST 21 (5-40) units/L ALT 10 (7-56) units/L Alkaline Phosphatase 66 (35-129) units/L Total Protein 8.1 (6.3-8.2) g/dL Albumin 4.0 (3.9-5) g/dL - Imaging and Cardiology EKG: image reviewed EKG interpretations - Telemetry EKG Rhythm: Sinus Rhythm - EKG Sinus rhythms and dysrhythmias: sinus rhythm Assessment and Plan I agree with her current regimen. I will modify her diuretic. Obtain echocardiogram. - Patient Problems (1) Acute on chronic HFrEF (heart failure with reduced ejection fraction) Current Visit: Yes Status: Acute (2) Nonischemic cardiomyopathy Current Visit: Yes Status: Chronic (3) AICD (automatic cardioverter/defibrillator) present Current Visit: Yes Status: Chronic (4) Hypertension Current Visit: Yes Status: Chronic Qualifiers: Hypertension type: essential hypertension Qualified Code(s): I10 - Essential (primary) hypertension (5) Diabetes mellitus Current Visit: Yes Status: Chronic Qualifiers: Diabetes mellitus type: type 2 (6) Morbid obesity Current Visit: Yes Status: Chronic
[2019-06-25] MEDS ORDERED: BUMEX PO SCH (11:00)
--- NOTE | 2019-06-25 11:18 | Progress Note ---
Assessment and Plan Assessment and plan: 33-year-old -[place] female with history of CHF, hypertension, diabetes who presents to [facility] ED with complaints of 30 pound weight gain and BLE pitting edema for one week and abdominal edema for the past 3 days. Acute on chronic systolic CHF Admitted to Telemetry continue Lasix 40mg iv q12h Continue coreg Continue Lisinopril cardiology following -EF 20-25% -CXR shows Moderately enlarged cardiac silhouette is stable compared with prior studies; Very mild interstitial pulmonary edema is present -BNP elevated 1528 Acute Abdominal Pain -Likely due to fluid overload/ CHF exacerbation -CT Abdomen showed Cardiomegaly; Body wall edema; Pelvic fluid -Continue supportive care Elevated D-Dimer -D-dimer 565.67 -V/Q negative for PE Hypertension -Continue to monitor BP -Resume home antihypertensive meds to optimize BP -IV antihypertensive when necessary DM 2 -POC BG monitoring -SSI coverage -HbgA1C pending Asthma -Albuterol prn Hx of [place] (2013) Obesity -BMI 54.8 -May benefit from lifestyle and diet modifications -May benefit from outpatient weight management program DVT PPX -On Lovenox History Interval history: Leg swelling Abdominal distension Hospitalist Physical - Physical exam Narrative exam: Gen: Not in acute distress, lying in bed, morbidly obese HEENT: Normocephalic, atraumatic Neck: supple, no JVD Heart: S1 and S2 reg, no murmurs, rubs or gallop Lungs: Bilateral basal crackles, no wheeze Abd: soft, non tender, non distended, normal BS, Ext: Bilateral edema, no clubbing, no cyanosis Neuro: Awake, alert, oriented X 3, no focal neurological signs - Constitutional Vitals: Temp Pulse Resp BP Pulse Ox 98.1 F 76 16 115/79 91 06/25/19 08:47 06/25/19 09:45 06/25/19 08:47 06/25/19 09:45 06/25/19 08:47 General appearance: Present: no acute distress Results - Labs CBC & Chem 7: 06/25/19 05:58 06/26/19 07:07 Labs: Laboratory Last Values WBC 6.6 K/mm3 (4.5-11.0) 06/25/19 05:58 RBC 4.70 M/mm3 (3.65-5.03) 06/25/19 05:58 Hgb 13.2 gm/dl (10.1-14.3) 06/25/19 05:58 Hct 40.2 % (30.3-42.9) 06/25/19 05:58 MCV 86 fl (79-97) 06/25/19 05:58 MCH 28 pg (28-32) 06/25/19 05:58 MCHC 33 % (30-34) 06/25/19 05:58 RDW 16.4 % (13.2-15.2) H 06/25/19 05:58 Plt Count 193 K/mm3 (140-440) 06/25/19 05:58 Lymph % (Auto) 38.2 % (13.4-35.0) H 06/25/19 05:58 [place] % (Auto) 10.5 % (0.0-7.3) H 06/25/19 05:58 Eos % (Auto) 1.6 % (0.0-4.3) 06/25/19 05:58 Baso % (Auto) 0.9 % (0.0-1.8) 06/25/19 05:58 Lymph # 2.5 K/mm3 (1.2-5.4) 06/25/19 05:58 [place] # 0.7 K/mm3 (0.0-0.8) 06/25/19 05:58 Eos # 0.1 K/mm3 (0.0-0.4) 06/25/19 05:58 Baso # 0.1 K/mm3 (0.0-0.1) 06/25/19 05:58 Seg Neutrophils % 48.8 % (40.0-70.0) 06/25/19 05:58 Seg Neutrophils # 3.2 K/mm3 (1.8-7.7) 06/25/19 05:58 PT 16.8 Sec. (12.2-14.9) H 06/24/19 15:10 INR 1.40 (0.87-1.13) H 06/24/19 15:10 565.67 ng/mlDDU (0-234) H 06/24/19 15:10 Sodium 139 mmol/L (137-145) 06/25/19 05:58 Potassium 4.0 mmol/L (3.6-5.0) 06/25/19 05:58 Chloride 99.5 mmol/L (98-107) 06/25/19 05:58 Carbon Dioxide 26 mmol/L (22-30) 06/25/19 05:58 18 mmol/L 06/25/19 05:58 BUN 9 mg/dL (7-17) 06/25/19 05:58 0.7 mg/dL (0.7-1.2) 06/25/19 05:58 Estimated GFR > 60 ml/min 06/25/19 05:58 13 % 06/25/19 05:58 Glucose 81 mg/dL (65-100) 06/25/19 05:58 POC Glucose 145 (70-105) H 06/25/19 07:44 6.5 % (4-6) H 06/24/19 15:10 Calcium 9.3 mg/dL (8.4-10.2) 06/25/19 05:58 Magnesium 2.00 mg/dL (1.7-2.3) 06/24/19 15:10 1.80 mg/dL (0.1-1.2) H 06/24/19 15:10 0.8 mg/dL (0-0.2) H 06/24/19 15:10 1.0 mg/dL 06/24/19 15:10 AST 21 units/L (5-40) 06/24/19 15:10 ALT 10 units/L (7-56) 06/24/19 15:10 66 units/L (35-129) 06/24/19 15:10 70 units/L (30-135) 06/24/19 15:10 NT-Pro-B Natriuret Pep 1528 pg/mL (0-450) H 06/24/19 15:10 8.1 g/dL (6.3-8.2) 06/24/19 15:10 4.0 g/dL (3.9-5) 06/24/19 15:10 1.0 % 06/24/19 15:10 Amylase 39 units/L (27-131) 06/24/19 15:10 HCG, Qual Negative (Negative) 06/24/19 15:10 Germaine (Yellow) 06/24/19 Unknown Clear (Clear) 06/24/19 Unknown 5.0 (5.0-7.0) 06/24/19 Unknown Ur Specific [place] 1.024 (1.003-1.030) 06/24/19 Unknown 100 mg/dl mg/dL (Negative) 06/24/19 Unknown Neg mg/dL (Negative) 06/24/19 Unknown Neg mg/dL (Negative) 06/24/19 Unknown Neg (Negative) 06/24/19 Unknown Neg (Negative) 06/24/19 Unknown Neg (Negative) 06/24/19 Unknown 2.0 mg/dL (<2.0) 06/24/19 Unknown Ur Leukocyte Esterase Neg (Negative) 06/24/19 Unknown 2.0 /HPF (0.0-6.0) 06/24/19 Unknown 5.0 /HPF (0.0-6.0) 06/24/19 Unknown U Epithel Cells (Auto) 10.0 /HPF (0-13.0) 06/24/19 Unknown Few /HPF 06/24/19 Unknown Active Medications - Current Medications Current Medications: Generic Name Dose Route Start Last Admin Trade Name Freq PRN Reason Stop Dose Admin Acetaminophen 650 mg 06/24/19 23:21 Tylenol PO Q4H PRN Pain MILD(1-3)/Fever >100.5/CRUZ Albuterol 2.5 mg 06/24/19 23:49 Proventil IH Q4HRT PRN Shortness Of Breath Aspirin 81 mg 06/25/19 10:00 06/25/19 09:45 Baby Aspirin PO 81 mg QDAY NALINI Administration Bumetanide 1 mg 06/25/19 11:00 Bumex IV BID@0600,1800 NALINI Carvedilol 25 mg 06/25/19 10:00 06/25/19 09:45 Coreg PO 25 mg BID NALINI Administration Dextrose 50 ml 06/24/19 23:48 D50w (25gm) Syringe IV PRN PRN Hypoglycemia Enoxaparin Sodium 40 mg 06/25/19 10:00 06/25/19 09:45 Lovenox SUB-Q 40 mg QDAY NALINI Administration Furosemide 40 mg 06/25/19 06:00 06/25/19 06:03 Lasix IV 40 mg BID@0600,1800 NALINI Administration Insulin Human Lispro 0 unit 06/25/19 07:30 06/25/19 08:27 Humalog SUB-Q Not Given ACHS [facility] Protocol Lisinopril 10 mg 06/25/19 10:00 06/25/19 09:45 Zestril PO 10 mg QDAY NALINI Administration Nitroglycerin 0.4 mg 06/24/19 23:15 Nitrostat SL .Q5MIN PRN Chest Pain Ondansetron HCl 4 mg 06/24/19 23:21 Zofran IV Q8H PRN Nausea And Vomiting Potassium Chloride 20 meq 06/25/19 10:00 06/25/19 09:45 K-Dur PO 20 meq BID ANLINI Administration Sodium Chloride 10 ml 06/25/19 10:00 06/25/19 09:46 Sodium Chloride Flush Syringe 10 Ml IV 10 ml BID NALINI Administration Sodium Chloride 10 ml 06/24/19 23:21 Sodium Chloride Flush Syringe 10 Ml IV PRN PRN LINE FLUSH
[2019-06-25] MEDS: BUMEX IV SCH ×2 (12:10→18:10)
[2019-06-26] MEDS: BUMEX IV SCH ×2 (05:46→17:59)
[2019-06-26] MEDS: LASIX IV SCH (05:46)
[2019-06-26 07:50] LABS: Alanine Aminotransferase 8 units/L (7-56); Albumin 3.7 g/dL (3.9-5); BUN/Creatinine Ratio 13; Blood Urea Nitrogen 8 mg/dL (7-17); Calcium 8.8 mg/dL (8.4-10.2); Hemolysis Index 11
[2019-06-26] MEDS ORDERED: BUMEX IV NR (10:22)
--- NOTE | 2019-06-26 10:23 | Progress Note ---
Assessment and Plan TTE reviewed. Cont IV bumex BID. Decrease coreg and lisinopril dosages as BPs are marginally low. The patient has been seen in conjunction with Dr. Larry who agrees with the assessment and plan of care. - Patient Problems (1) Acute on chronic HFrEF (heart failure with reduced ejection fraction) Current Visit: Yes Status: Acute (2) Nonischemic cardiomyopathy Current Visit: Yes Status: Chronic (3) AICD (automatic cardioverter/defibrillator) present Current Visit: Yes Status: Chronic (4) Hypertension Current Visit: Yes Status: Chronic Qualifiers: Hypertension type: essential hypertension Qualified Code(s): I10 - Essential (primary) hypertension (5) Diabetes mellitus Current Visit: Yes Status: Chronic Qualifiers: Diabetes mellitus type: type 2 (6) Morbid obesity Current Visit: Yes Status: Chronic Subjective Date of service: 06/26/19 Principal diagnosis: HF Interval history: pt resting comfortably in bed, states she is feeling a little better. in SR on tele overnight with some bouts of NSVT, pt asymptomatic. Objective Last Vital Signs Temp 98.2 F 06/26/19 09:52 Pulse 78 06/26/19 09:52 Resp 24 06/26/19 09:52 BP 101/52 06/26/19 09:52 Pulse Ox 91 06/26/19 09:52 - Physical Examination General: No Apparent Distress HEENT: Positive: EOMI, Normocephaly, Mucus Membranes Moist Neck: Positive: neck supple, trachea midline, JVD/HJR (elevated) Cardiac: Positive: Reg Rate and Rhythm, S1/S2 Lungs: Positive: Decreased Breath Sounds Neuro: Positive: Grossly Intact Abdomen: Positive: Soft, Active Bowel Sounds. Negative: Tender Skin: Positive: Clear. Negative: Rash Musculoskeletal: Normal Range of Motion Extremities: Present: normal, +2 Edema (pitting bilateral leg edema) - Labs and Meds Cardiac Enzymes 06/26/19 Range/Units 07:07 AST 17 (5-40) units/L Comprehensive Metabolic Panel 06/26/19 Range/Units 07:07 Sodium 140 (137-145) mmol/L Potassium 4.0 (3.6-5.0) mmol/L Chloride 100.7 (98-107) mmol/L Carbon Dioxide 27 (22-30) mmol/L BUN 8 (7-17) mg/dL Creatinine 0.6 L (0.7-1.2) mg/dL Glucose 104 H (65-100) mg/dL Calcium 8.8 (8.4-10.2) mg/dL AST 17 (5-40) units/L ALT 8 (7-56) units/L Alkaline Phosphatase 57 (35-129) units/L Total Protein 7.0 (6.3-8.2) g/dL Albumin 3.7 L (3.9-5) g/dL - Imaging and Cardiology EKG: image reviewed - EKG Sinus rhythms and dysrhythmias: sinus rhythm
[2019-06-26] MEDS: HumaLOG SUB-Q SCH ×4 (11:08→21:45)
[2019-06-26] MEDS: LOVENOX SUB-Q SCH (11:09)
[2019-06-26] MEDS: BABY ASPIRIN PO SCH (11:09)
[2019-06-26] MEDS: K-DUR PO SCH ×2 (11:10→21:45)
[2019-06-26] MEDS: SODIUM CHLORIDE FLUSH SYRINGE 10 ML IV SCH ×2 (11:10→21:46)
[2019-06-26] MEDS: COREG PO SCH ×2 (11:11→21:46)
[2019-06-26] MEDS: ZESTRIL PO SCH (11:17)
--- NOTE | 2019-06-26 11:22 | Progress Note ---
Assessment and Plan Assessment and plan: 33-year-old -[place] female with history of CHF, hypertension, diabetes who presents to [facility] with complaints of 30 pound weight gain and BLE pitting edema for one week and abdominal edema for the past 3 days. Acute on chronic systolic CHF Admitted to Telemetry Started on Bumex iv Continue coreg Continue Lisinopril cardiology following -EF 20-25% -BNP elevated 1528 Acute Abdominal Pain -Likely due to fluid overload/ CHF exacerbation -CT Abdomen showed Cardiomegaly; Body wall edema; Pelvic fluid -Continue supportive care Elevated D-Dimer -D-dimer 565.67 -V/Q negative for PE Hypertension -Continue to monitor BP -Resume home antihypertensive meds to optimize BP -IV antihypertensive when necessary DM 2 -POC BG monitoring -SSI coverage -HbgA1C 6.5 Asthma -Albuterol prn Hx of MS (2013) Obesity -BMI 54.8 -May benefit from lifestyle and diet modifications -May benefit from outpatient weight management program DVT PPX -On Lovenox History Interval history: Leg swelling Abdominal distension Hospitalist Physical - Physical exam Narrative exam: Gen: Not in acute distress, lying in bed, morbidly obese HEENT: Normocephalic, atraumatic Neck: supple, no JVD Heart: S1 and S2 reg, no murmurs, rubs or gallop Lungs: Bilateral basal crackles, no wheeze Abd: soft, non tender, non distended, normal BS, Ext: Bilateral edema, no clubbing, no cyanosis Neuro: Awake, alert, oriented X 3, no focal neurological signs - Constitutional Vitals: Temp Pulse Resp BP Pulse Ox 98.2 F 78 24 101/52 91 06/26/19 09:52 06/26/19 09:52 06/26/19 09:52 06/26/19 09:52 06/26/19 09:52 General appearance: Present: no acute distress Results - Labs CBC & Chem 7: 06/25/19 05:58 06/26/19 07:07 Labs: Laboratory Last Values WBC 6.6 K/mm3 (4.5-11.0) 06/25/19 05:58 RBC 4.70 M/mm3 (3.65-5.03) 06/25/19 05:58 Hgb 13.2 gm/dl (10.1-14.3) 06/25/19 05:58 Hct 40.2 % (30.3-42.9) 06/25/19 05:58 MCV 86 fl (79-97) 06/25/19 05:58 MCH 28 pg (28-32) 06/25/19 05:58 MCHC 33 % (30-34) 06/25/19 05:58 RDW 16.4 % (13.2-15.2) H 06/25/19 05:58 Plt Count 193 K/mm3 (140-440) 06/25/19 05:58 Lymph % (Auto) 38.2 % (13.4-35.0) H 06/25/19 05:58 [place] % (Auto) 10.5 % (0.0-7.3) H 06/25/19 05:58 Eos % (Auto) 1.6 % (0.0-4.3) 06/25/19 05:58 Baso % (Auto) 0.9 % (0.0-1.8) 06/25/19 05:58 Lymph # 2.5 K/mm3 (1.2-5.4) 06/25/19 05:58 [place] # 0.7 K/mm3 (0.0-0.8) 06/25/19 05:58 Eos # 0.1 K/mm3 (0.0-0.4) 06/25/19 05:58 Baso # 0.1 K/mm3 (0.0-0.1) 06/25/19 05:58 Seg Neutrophils % 48.8 % (40.0-70.0) 06/25/19 05:58 Seg Neutrophils # 3.2 K/mm3 (1.8-7.7) 06/25/19 05:58 PT 16.8 Sec. (12.2-14.9) H 06/24/19 15:10 INR 1.40 (0.87-1.13) H 06/24/19 15:10 565.67 ng/mlDDU (0-234) H 06/24/19 15:10 Sodium 140 mmol/L (137-145) 06/26/19 07:07 Potassium 4.0 mmol/L (3.6-5.0) 06/26/19 07:07 Chloride 100.7 mmol/L (98-107) 06/26/19 07:07 Carbon Dioxide 27 mmol/L (22-30) 06/26/19 07:07 16 mmol/L 06/26/19 07:07 BUN 8 mg/dL (7-17) 06/26/19 07:07 0.6 mg/dL (0.7-1.2) L 06/26/19 07:07 Estimated GFR > 60 ml/min 06/26/19 07:07 13 % 06/26/19 07:07 Glucose 104 mg/dL (65-100) H 06/26/19 07:07 POC Glucose 94 (70-105) 06/26/19 07:47 6.5 % (4-6) H 06/24/19 15:10 Calcium 8.8 mg/dL (8.4-10.2) 06/26/19 07:07 Magnesium 2.00 mg/dL (1.7-2.3) 06/24/19 15:10 1.20 mg/dL (0.1-1.2) 06/26/19 07:07 0.8 mg/dL (0-0.2) H 06/24/19 15:10 1.0 mg/dL 06/24/19 15:10 AST 17 units/L (5-40) 06/26/19 07:07 ALT 8 units/L (7-56) 06/26/19 07:07 57 units/L (35-129) 06/26/19 07:07 70 units/L (30-135) 06/24/19 15:10 NT-Pro-B Natriuret Pep 1528 pg/mL (0-450) H 06/24/19 15:10 7.0 g/dL (6.3-8.2) 06/26/19 07:07 3.7 g/dL (3.9-5) L 06/26/19 07:07 1.1 % 06/26/19 07:07 Amylase 39 units/L (27-131) 06/24/19 15:10 HCG, Qual Negative (Negative) 06/24/19 15:10 Germaine (Yellow) 06/24/19 Unknown Clear (Clear) 06/24/19 Unknown 5.0 (5.0-7.0) 06/24/19 Unknown Ur Specific [place] 1.024 (1.003-1.030) 06/24/19 Unknown 100 mg/dl mg/dL (Negative) 06/24/19 Unknown Neg mg/dL (Negative) 06/24/19 Unknown Neg mg/dL (Negative) 06/24/19 Unknown Neg (Negative) 06/24/19 Unknown Neg (Negative) 06/24/19 Unknown Neg (Negative) 06/24/19 Unknown 2.0 mg/dL (<2.0) 06/24/19 Unknown Ur Leukocyte Esterase Neg (Negative) 06/24/19 Unknown 2.0 /HPF (0.0-6.0) 06/24/19 Unknown 5.0 /HPF (0.0-6.0) 06/24/19 Unknown U Epithel Cells (Auto) 10.0 /HPF (0-13.0) 06/24/19 Unknown Few /HPF 06/24/19 Unknown Active Medications - Current Medications Current Medications: Generic Name Dose Route Start Last Admin Trade Name Freq PRN Reason Stop Dose Admin Acetaminophen 650 mg 06/24/19 23:21 Tylenol PO Q4H PRN Pain MILD(1-3)/Fever >100.5/CRUZ Albuterol 2.5 mg 06/24/19 23:49 Proventil IH Q4HRT PRN Shortness Of Breath Aspirin 81 mg 06/25/19 10:00 06/26/19 11:09 Baby Aspirin PO 81 mg QDAY NALINI Administration Bumetanide 1 mg 06/25/19 11:00 06/26/19 05:46 Bumex IV Not Given BID@0600,1800 NALINI Bumetanide 1 mg 06/26/19 10:22 06/26/19 11:15 Bumex IV 06/26/19 12:30 1 mg ONCE NR Administration Carvedilol 12.5 mg 06/26/19 09:00 06/26/19 11:11 Coreg PO Not Given BID NALINI Dextrose 50 ml 06/24/19 23:48 D50w (25gm) Syringe IV PRN PRN Hypoglycemia Enoxaparin Sodium 40 mg 06/25/19 10:00 06/26/19 11:09 Lovenox SUB-Q 40 mg QDAY NALINI Administration Insulin Human Lispro 0 unit 06/25/19 07:30 06/26/19 11:08 Humalog SUB-Q Not Given ACHS [facility] Protocol Lisinopril 5 mg 06/26/19 09:00 06/26/19 11:17 Zestril PO Not Given QDAY NALINI Nitroglycerin 0.4 mg 06/24/19 23:15 Nitrostat SL .Q5MIN PRN Chest Pain Ondansetron HCl 4 mg 06/24/19 23:21 Zofran IV Q8H PRN Nausea And Vomiting Potassium Chloride 20 meq 06/25/19 10:00 06/26/19 11:10 K-Dur PO 20 meq BID NALINI Administration Sodium Chloride 10 ml 06/25/19 10:00 06/26/19 11:10 Sodium Chloride Flush Syringe 10 Ml IV 10 ml BID NALINI Administration Sodium Chloride 10 ml 06/24/19 23:21 Sodium Chloride Flush Syringe 10 Ml IV PRN PRN LINE FLUSH Nutrition/Malnutrition Assess - Dietary Evaluation Nutrition/Malnutrition Findings: Nutrition Notes Start: 06/25/19 15:02 Freq: Status: Active Protocol: Document 06/25/19 15:02 RM (Rec: 06/25/19 15:04 RM [id number]) Nutrition Notes Need for Assessment generated from: MD Order Initial or Follow up Brief Note Current Diagnosis Diabetes,Hypertension,Heart Failure Other Pertinent Diagnosis BLE pitting edema Current Diet Cardiac/Consistent CHO Labs/Tests A1c 6.5 Pertinent Medications Lasix Height 5 ft 2 in Weight 142.1 kg [place] Body Weight (kg) 50.00 BMI 57.2 Subjective/Other Information Consulted for DM diet education. Pt not in room at time of visit. Per tech pt is eating most of her meals. Burn Absent Trauma Absent Nutrition Intervention Follow-Up By: 06/26/19 Additional Comments Follow for DM diet education, PO intakes
[2019-06-27] MEDS: BUMEX IV SCH ×2 (06:03→17:53)
[2019-06-27] MEDS: HumaLOG SUB-Q SCH ×3 (08:30→19:00)
[2019-06-27] MEDS: LOVENOX SUB-Q SCH (09:44)
[2019-06-27] MEDS: K-DUR PO SCH ×2 (09:44→21:47)
[2019-06-27] MEDS: BABY ASPIRIN PO SCH (09:44)
[2019-06-27] MEDS: COREG PO SCH ×2 (09:45→21:47)
[2019-06-27] MEDS: SODIUM CHLORIDE FLUSH SYRINGE 10 ML IV SCH ×2 (09:46→21:48)
--- NOTE | 2019-06-27 11:28 | Progress Note ---
Assessment and Plan Pt appears to be diuresing well on IV bumex BID. Cont present cardiac management. Pt will likely be stable for discharge home from cardiology standpoint tomorrow. The patient has been seen in conjunction with Dr. Larry who agrees with the assessment and plan of care. - Patient Problems (1) Acute on chronic HFrEF (heart failure with reduced ejection fraction) Current Visit: Yes Status: Acute (2) Nonischemic cardiomyopathy Current Visit: Yes Status: Chronic (3) AICD (automatic cardioverter/defibrillator) present Current Visit: Yes Status: Chronic (4) Hypertension Current Visit: Yes Status: Chronic Qualifiers: Hypertension type: essential hypertension Qualified Code(s): I10 - Essential (primary) hypertension (5) Diabetes mellitus Current Visit: Yes Status: Chronic Qualifiers: Diabetes mellitus type: type 2 (6) Morbid obesity Current Visit: Yes Status: Chronic Subjective Date of service: 06/27/19 Principal diagnosis: HF Interval history: pt resting comfortably in bed, states she is feeling a little better. she reports her urine output was increased after switching from lasix to bumex. Objective Last Vital Signs Temp 97.7 F 06/27/19 08:47 Pulse 71 06/27/19 10:00 Resp 20 06/27/19 08:47 BP 113/77 06/27/19 09:45 Pulse Ox 92 06/27/19 08:47 - Physical Examination General: No Apparent Distress HEENT: Positive: EOMI, Normocephaly, Mucus Membranes Moist Neck: Positive: neck supple, trachea midline, JVD/HJR (elevated) Cardiac: Positive: Reg Rate and Rhythm, S1/S2 Lungs: Positive: Decreased Breath Sounds Neuro: Positive: Grossly Intact Abdomen: Positive: Soft, Active Bowel Sounds. Negative: Tender Skin: Positive: Clear. Negative: Rash Musculoskeletal: Normal Range of Motion Extremities: Present: normal, +2 Edema (pitting bilateral leg edema) - Imaging and Cardiology EKG: image reviewed - EKG Sinus rhythms and dysrhythmias: sinus rhythm
--- NOTE | 2019-06-27 14:41 | Progress Note ---
Hospitalist Physical - Constitutional Vitals: Temp Pulse Resp BP Pulse Ox 97.7 F 78 18 113/77 92 06/27/19 08:47 06/27/19 10:00 06/27/19 10:00 06/27/19 09:45 06/27/19 08:47 General appearance: Present: no acute distress Results - Labs CBC & Chem 7: 06/25/19 05:58 06/26/19 07:07 Labs: Laboratory Last Values WBC 6.6 K/mm3 (4.5-11.0) 06/25/19 05:58 RBC 4.70 M/mm3 (3.65-5.03) 06/25/19 05:58 Hgb 13.2 gm/dl (10.1-14.3) 06/25/19 05:58 Hct 40.2 % (30.3-42.9) 06/25/19 05:58 MCV 86 fl (79-97) 06/25/19 05:58 MCH 28 pg (28-32) 06/25/19 05:58 MCHC 33 % (30-34) 06/25/19 05:58 RDW 16.4 % (13.2-15.2) H 06/25/19 05:58 Plt Count 193 K/mm3 (140-440) 06/25/19 05:58 Lymph % (Auto) 38.2 % (13.4-35.0) H 06/25/19 05:58 [place] % (Auto) 10.5 % (0.0-7.3) H 06/25/19 05:58 Eos % (Auto) 1.6 % (0.0-4.3) 06/25/19 05:58 Baso % (Auto) 0.9 % (0.0-1.8) 06/25/19 05:58 Lymph # 2.5 K/mm3 (1.2-5.4) 06/25/19 05:58 [place] # 0.7 K/mm3 (0.0-0.8) 06/25/19 05:58 Eos # 0.1 K/mm3 (0.0-0.4) 06/25/19 05:58 Baso # 0.1 K/mm3 (0.0-0.1) 06/25/19 05:58 Seg Neutrophils % 48.8 % (40.0-70.0) 06/25/19 05:58 Seg Neutrophils # 3.2 K/mm3 (1.8-7.7) 06/25/19 05:58 PT 16.8 Sec. (12.2-14.9) H 06/24/19 15:10 INR 1.40 (0.87-1.13) H 06/24/19 15:10 565.67 ng/mlDDU (0-234) H 06/24/19 15:10 Sodium 140 mmol/L (137-145) 06/26/19 07:07 Potassium 4.0 mmol/L (3.6-5.0) 06/26/19 07:07 Chloride 100.7 mmol/L (98-107) 06/26/19 07:07 Carbon Dioxide 27 mmol/L (22-30) 06/26/19 07:07 16 mmol/L 06/26/19 07:07 BUN 8 mg/dL (7-17) 06/26/19 07:07 0.6 mg/dL (0.7-1.2) L 06/26/19 07:07 Estimated GFR > 60 ml/min 06/26/19 07:07 13 % 06/26/19 07:07 Glucose 104 mg/dL (65-100) H 06/26/19 07:07 POC Glucose 86 (70-105) 06/27/19 12:47 6.5 % (4-6) H 06/24/19 15:10 Calcium 8.8 mg/dL (8.4-10.2) 06/26/19 07:07 Magnesium 2.00 mg/dL (1.7-2.3) 06/24/19 15:10 1.20 mg/dL (0.1-1.2) 06/26/19 07:07 0.8 mg/dL (0-0.2) H 06/24/19 15:10 1.0 mg/dL 06/24/19 15:10 AST 17 units/L (5-40) 06/26/19 07:07 ALT 8 units/L (7-56) 06/26/19 07:07 57 units/L (35-129) 06/26/19 07:07 70 units/L (30-135) 06/24/19 15:10 NT-Pro-B Natriuret Pep 1528 pg/mL (0-450) H 06/24/19 15:10 7.0 g/dL (6.3-8.2) 06/26/19 07:07 3.7 g/dL (3.9-5) L 06/26/19 07:07 1.1 % 06/26/19 07:07 Amylase 39 units/L (27-131) 06/24/19 15:10 HCG, Qual Negative (Negative) 06/24/19 15:10 Germaine (Yellow) 06/24/19 Unknown Clear (Clear) 06/24/19 Unknown 5.0 (5.0-7.0) 06/24/19 Unknown Ur Specific [place] 1.024 (1.003-1.030) 06/24/19 Unknown 100 mg/dl mg/dL (Negative) 06/24/19 Unknown Neg mg/dL (Negative) 06/24/19 Unknown Neg mg/dL (Negative) 06/24/19 Unknown Neg (Negative) 06/24/19 Unknown Neg (Negative) 06/24/19 Unknown Neg (Negative) 06/24/19 Unknown 2.0 mg/dL (<2.0) 06/24/19 Unknown Ur Leukocyte Esterase Neg (Negative) 06/24/19 Unknown 2.0 /HPF (0.0-6.0) 06/24/19 Unknown 5.0 /HPF (0.0-6.0) 06/24/19 Unknown U Epithel Cells (Auto) 10.0 /HPF (0-13.0) 06/24/19 Unknown Few /HPF 06/24/19 Unknown Active Medications - Current Medications Current Medications: Generic Name Dose Route Start Last Admin Trade Name Freq PRN Reason Stop Dose Admin Acetaminophen 650 mg 06/24/19 23:21 Tylenol PO Q4H PRN Pain MILD(1-3)/Fever >100.5/CRUZ Albuterol 2.5 mg 06/24/19 23:49 Proventil IH Q4HRT PRN Shortness Of Breath Aspirin 81 mg 06/25/19 10:00 06/27/19 09:44 Baby Aspirin PO 81 mg QDAY NALINI Administration Bumetanide 1 mg 06/25/19 11:00 06/27/19 06:03 Bumex IV 1 mg BID@0600,1800 NALINI Administration Carvedilol 12.5 mg 06/26/19 09:00 06/27/19 09:45 Coreg PO 12.5 mg BID NALINI Administration Dextrose 50 ml 06/24/19 23:48 D50w (25gm) Syringe IV PRN PRN Hypoglycemia Enoxaparin Sodium 40 mg 06/25/19 10:00 06/27/19 09:44 Lovenox SUB-Q 40 mg QDAY NALINI Administration Insulin Human Lispro 0 unit 06/25/19 07:30 06/27/19 08:30 Humalog SUB-Q Not Given ACHS [facility] Protocol Lisinopril 5 mg 06/26/19 09:00 06/26/19 11:17 Zestril PO Not Given QDAY NALINI Nitroglycerin 0.4 mg 06/24/19 23:15 Nitrostat SL .Q5MIN PRN Chest Pain Ondansetron HCl 4 mg 06/24/19 23:21 Zofran IV Q8H PRN Nausea And Vomiting Potassium Chloride 20 meq 06/25/19 10:00 06/27/19 09:44 K-Dur PO 20 meq BID NALINI Administration Sodium Chloride 10 ml 06/25/19 10:00 06/27/19 09:46 Sodium Chloride Flush Syringe 10 Ml IV 10 ml BID NALINI Administration Sodium Chloride 10 ml 06/24/19 23:21 Sodium Chloride Flush Syringe 10 Ml IV PRN PRN LINE FLUSH Nutrition/Malnutrition Assess - Dietary Evaluation Nutrition/Malnutrition Findings: Nutrition Notes Start: 06/25/19 15:02 Freq: Status: Active Protocol: Document 06/26/19 15:11 RM (Rec: 06/26/19 15:15 [id number]) Nutrition Notes Initial or Follow up Brief Note Current Diagnosis Diabetes,Hypertension,Heart Failure Other Pertinent Diagnosis BLE pitting edema Current Diet Cardiac/Consistent CHO Labs/Tests A1c 6.5 Pertinent Medications Reviewed Height 5 ft 2 in Weight 142.4 kg [place] Body Weight (kg) 50.00 BMI 57.4 Subjective/Other Information Pt stated that her appetite is good and that she eats 25% to 50% of her meals d/t having gastric sleeve done in the past. Pt stated that her A1c was higher in thet past, her DM has reversed, and her primary MD has not recommended any medication. Burn Absent Trauma Absent Nutrition Intervention Revisit per MD consult or patient Sign Off request:
[2019-06-27] MEDS: ZESTRIL PO SCH (17:50)
[2019-06-28] MEDS: BUMEX IV SCH (05:40)
[2019-06-28 08:07] VITALS: BP 97/53
[2019-06-28] MEDS: HumaLOG SUB-Q SCH ×2 (08:13)
[2019-06-28] MEDS: BABY ASPIRIN PO SCH (10:01)
[2019-06-28] MEDS: ZESTRIL PO SCH (10:01)
[2019-06-28] MEDS: K-DUR PO SCH (10:01)
[2019-06-28] MEDS: LOVENOX SUB-Q SCH (10:01)
[2019-06-28] MEDS: SODIUM CHLORIDE FLUSH SYRINGE 10 ML IV SCH (10:02)
--- NOTE | 2019-06-28 10:49 | Discharge Summary ---
Providers - Providers Date of Admission: 06/26/19 12:39 Date of discharge: 06/28/19 Attending physician: LISE RILEY 06/24/19 17:42 Consult to Physician [CONS] Urgent Comment: Consulting Provider: MARILEE CRONIN Physician Instructions: Reason For Exam: chf 06/24/19 23:49 Consult to Dietitian/Nutrition [CONS] Routine Physician Instructions: Reason For Exam: Reason for Consult: Diet education Primary care physician: CATRACHO MERCEDES Hospitalization Condition: Fair Disposition: DC-01 TO HOME OR SELFCARE Exam - Constitutional Vitals: Temp Pulse Resp BP Pulse Ox 97.6 F 72 16 97/53 92 06/28/19 07:42 06/28/19 10:01 06/28/19 07:42 06/28/19 10:01 06/28/19 07:42 Plan Activity: advance as tolerated Diet: low fat, low cholesterol, low salt Plan of Treatment: 1.Follow up with PCP or [facility] in 1 week. 2.Follow up with Dr. Cronin, Cardiology in 1 week Follow up with: PRIMARY CARE, [Referring] - 3-5 Days Prescriptions: Bumetanide [Bumex 1 mg tab] 1 mg PO BID #60 tab Carvedilol [Coreg] 12.5 mg PO BID #60 tablet
--- NOTE | 2019-06-28 11:15 | Progress Note ---
Assessment and Plan clinically vastly improved f/u Dr. LOYD this week - Patient Problems (1) Acute on chronic HFrEF (heart failure with reduced ejection fraction) Current Visit: Yes Status: Acute (2) AICD (automatic cardioverter/defibrillator) present Current Visit: Yes Status: Chronic (3) Diabetes mellitus Current Visit: Yes Status: Chronic Qualifiers: Diabetes mellitus type: type 2 (4) Hypertension Current Visit: Yes Status: Chronic Qualifiers: Hypertension type: essential hypertension Qualified Code(s): I10 - Essential (primary) hypertension (5) Morbid obesity Current Visit: Yes Status: Chronic (6) S/P implantation of automatic cardioverter/defibrillator (AICD) Current Visit: No Status: Acute Subjective Date of service: 06/28/19 Principal diagnosis: HF Interval history: feels a lot better, back to "normal" Objective Vital Signs Temp Pulse Resp BP BP Pulse Ox 06/28/19 10:01 72 97/53 06/28/19 07:42 97.6 F 72 16 97/53 92 06/28/19 05:00 97.9 F 73 18 104/70 97 06/28/19 00:08 97.8 F 77 18 110/70 95 06/27/19 22:00 18 06/27/19 20:00 98.0 F 79 18 115/72 93 06/27/19 19:36 98.0 F 79 18 115/72 94 06/27/19 18:10 154/108 06/27/19 17:51 76 18 104/66 97 06/27/19 17:50 79 113/77 - Physical Examination General: No Apparent Distress HEENT: Positive: EOMI, Normocephaly, Mucus Membranes Moist Neck: Positive: neck supple, trachea midline, JVD/HJR (elevated) Neuro: Positive: Grossly Intact Abdomen: Positive: Soft, Active Bowel Sounds. Negative: Tender Skin: Positive: Clear. Negative: Rash Musculoskeletal: Normal Range of Motion Extremities: Present: normal, +2 Edema (pitting bilateral leg edema) - Imaging and Cardiology EKG: image reviewed - EKG Sinus rhythms and dysrhythmias: sinus rhythm
== END 2019-06-28 13:00 | disposition home or self-care (01) | DRG 292 ==
LOC: ED 14:48 → INTOOBSV 23:21 → 4A 23:21 → OBSVTOIN 06-26 12:39
PROVIDERS: ADMIT Internal Medicine; ATTEND Internal Medicine
DX: I11.0 Hypertensive heart disease with heart failure (principal); Z68.43 Body mass index [BMI] 50.0-59.9, adult; I42.8 Other cardiomyopathies; I50.23 Acute on chronic systolic (congestive) heart failure; E11.8 Type 2 diabetes mellitus with unspecified complications; E66.01 Morbid (severe) obesity due to excess calories; J45.909 Unspecified asthma, uncomplicated; I25.2 Old myocardial infarction; Z91.018 Allergy to other foods; Z95.810 Presence of automatic (implantable) cardiac defibrillator; Z91.013 Allergy to seafood; Z79.82 Long term (current) use of aspirin; Z79.899 Other long term (current) drug therapy; Z87.442 Personal history of urinary calculi; Z90.3 Acquired absence of stomach [part of]
CPT/HCPCS: 36415; 71045; 74176; 78582; 80048; 80053; 80076; 81001; 82150; 82550; 82962; 83036; 83735; 83880; 84703; 85025; 85379; 85610; 93005; 93010; 93306; 96374; G0378; A9540; A9558; J1650; J1940